=== PATIENT | female | born 1935 | race Caucasian/White ===

== ENCOUNTER 2023-07-03 11:19 | Inpatient (IN) | payer MEDICARE, SELFPAY ==
[2023-07-03] VITALS (12 sets, daily range): BP systolic 114–189; BP diastolic 52–108; BMI 29.4
--- NOTE | 2023-07-03 06:25 | ED.GENMED ---
Addendum entered and electronically signed by Leobardo Hammond DO 07/03/23 08:05:
Correction to the nurses notes, the patient does not appear to have had a heart transplant
Original Note:
History of Present Illness
General
Chief Complaint: Breathing Problem
Source: patient, records and shelter records
Exam Limitations: none
Time Seen by Provider: 07/03/23 06:05
Nursing documentation reviewed up to this point in time: agreed with
Travel History
Have you had any contact with someone who has COVID-19?: No
Do you have any symptoms of coronavirus? Fever > 100 degrees, chills, cough, shortness of breath, sore throat, loss of taste or smell, muscle aches, or headache?: No
History of Present Illness
History of Present Illness:
87-year-old female from local shelter presents with shortness of breath pulse ox in the 80s given nebs x 2 placed on oxygen denies fever denies increasing leg edema, apparently was seen recently with a pleural effusion which was tapped, denies
chest pain,
Past History
Past History
ED Past Medical History: Arrthythmia, CAD, CHF and Hypercholesterolemia
Social History
Tobacco: Former smoker
Drug: None
Living: shelter
Employment: Not employed
Review of Systems
Review of Systems
All Other Systems: Not applicable
Constitutional: Denies fever or fatigue
Respiratory: Reports cough and trouble breathing
Cardiac: Denies chest pain
: Reports no symptoms
Musculoskeletal: Reports no symptoms
Phy Exam
Physical Exam
Physical Exam:
Physical Exam
General: Chronically ill-appearing female dyspneic
Neck: No jaundice
Heart: Irregular
Lungs: Wheezing bilateral
Abdomen: Nontender
Neuro: Grossly nonfocal
Skin: no rash
Psychiatric: cooperative
Extremities: Edema
Scores
Heart Failure Risk
Heart Failure Risk Score: Yes
History of Stroke or TIA: No
History of intubation for respiratory distress: No
Heart rate on ED arrival >/= 110: Yes
SaO2 <90% on arrival on room air: Yes
HR >/=110 during 3min walk test (or too ill to perform test): Yes
ECG has acute ischemic changes: Yes
Urea >/=12mmol/L (BUN 33.6mg/dL): No
Serum CO2>/=35mmol/L: No
Troponin I or T elevated to OH Level (0.4mg/dL): No
NT-proBNP >/=5,000ng/L (5,000pg/ml): Yes
HF Risk Score: 6
Admission Status: VERY HIGH RISK 55.3% Consider admission to hospital
Course
Orders/Labs/Results
Orders:
Orders
07/03/23
Electrocardiogram (*1) Stat
Reason for Study: Chest Pain
Comment: ORDER COMPLETED
07/03/23 06:25
Cardiac Monitoring- Treatment ONCE
O2 Therapy [RESP] Urgent
Titrate/Wean O2 to maintain O2 sat greater than (%): 93
Special Instructions: TO MAINTAIN CONTINUOUS O2 SATS >/= 93%
Pulse Ox/cont/shift [RESP] Urgent
Quantity: 1
Special Instructions: continuous pulse ox
07/03/23 06:27
Complete Blood Count/With Diff Urgent
Comprehensive Metabolic Panel Urgent
NT-proBNP Urgent
Troponin I Urgent
07/03/23 06:55
CR Chest Portable - 1 View Urgent
Comment:
Reason For Exam: SOB
Reason Study Needs to be Portable: Patient Unstable
07/03/23 07:16
Albuterol Nebs [Ventolin Nebules] 2.5 mg INH R NOW STA
07/03/23 07:21
COVID-19 Antigen Urgent
Source: Nasal Swab
Influenza A+B Rapid Molecular Urgent
THOMAS Source: Nasal Swab
Specimen Description:
07/03/23 07:33
Furosemide [Lasix] 80 mg IV NOW STA
07/03/23 07:56
Oseltamivir Phosphate [Tamiflu] 75 mg PO NOW STA
Abnormal Lab Results
07/03/23
06:27
WBC 11.4 H 10^3/uL
(4.8-10.8)
RBC 2.68 L 10^6/uL
(4.20-5.40)
Hgb 8.5 L g/dL
(12.0-16.0)
Hct 25.9 L %
(37.0-47.0)
MCH 31.7 H pg
(27.0-31.0)
MCHC 32.8 L g/dL
(33.0-37.0)
RDW 16.6 H %
(11.5-14.5)
MPV 10.7 H fL
(7.4-10.4)
Abs Immat Gran (auto) 0.1 H 10^3/uL
(0-0.05)
Absolute Neuts (auto) 10.0 H 10^3/uL
(1.4-6.5)
Absolute Lymphs (auto) 0.3 L 10^3/uL
(1.2-3.4)
Neutrophils % 87.5 H %
(42.2-75.2)
Lymphocytes % 2.6 L %
(20.5-51.1)
Creatinine 1.3 H mg/dL
(0.6-1.0)
Glucose 120 H mg/dl
(70-99)
Troponin I 0.051 H* ng/ml
Total Protein 6.2 L g/dl
(6.3-8.2)
Albumin 3.3 L g/dl
(3.5-5.0)
07/03/23 06:27
07/03/23 06:27
Vital Signs
Initial and Last Documented VS:
Initial Vital Signs
Temp Pulse Resp BP Pulse Ox
98.5 F 96 27 175/74 100
07/03/23 05:59 07/03/23 05:59 07/03/23 05:59 07/03/23 05:59 07/03/23 05:59
Last Documented Vital Signs
Temp Pulse Resp BP Pulse Ox
98.5 F 96 27 175/74 97
07/03/23 05:59 07/03/23 05:59 07/03/23 05:59 07/03/23 05:59 07/03/23 06:05
MDM/Problems Addressed
Differential Diagnosis Includes:
Heart failure pneumonia A-fib pleural effusion aspiration
MDM/Problems Addressed:
Shortness of breath cough
Chronic conditions affecting care: CAD, Cardiomyopathy and Arrhythmia
Acute Exacerbation and/or Progression of Chronic Illness: HTN and Cardiomyopathy
*Radiology
Radiology exam reviewed: preliminary read by ED provider
*Pulse Oximetry
Patient hypoxic: yes (80s per EMS on room air)
*EKG
Interpreted by ED Provider?: Yes
Interpretation: abnormal
Comparison EKG: no comparison EKG present
Heart Rate: 108
Rate: tachycardiac
Rhythm: a-fib
Ischemia: non-specific ST changes
*[employer] Spr[employer]er Interpretation
Rate: tachycardiac
Interpretation: abnormal
Heart Rate: 102
Rhythm: a-fib
*Critical Care Note
Total Time (30-74mins, 75-104mins- exclusive of procedures): 20
Patient Management
Discussion with other providers: Hospitalist
Escalation/DeEscalation of care consider admission/obs:
Elderly hypoxia tachypneic tachycardia volume overloaded with influenza requires admission
Update Note
Update Note:
Update 7:50 AM proBNP noted no old in her system she is wheezing with diuresis, influenza screen noted will start Tamiflu
Patient with hypoxia tachypnea tachycardia will require admission message sent to the hospitalist
ED Attending Note
-
Portions of this chart may have been created with voice recognition software.� Occasional wrong word or��sound alike� substitutions may have occurred due to the inherent limitations of voice recognition software.
Discharge Plan
Departure
Referrals:
Emmanuel Chahal MD [Family Provider] -
Interventions
Interventions:
*Risk Screen - Suicide Last Done: 07/03/23 05:59
*General Assessment Last Done: 07/03/23 05:59
*Neglect/Abuse Screening Last Done: 07/03/23 05:59
ED- Fall Risk Assessment Last Done: 07/03/23 05:59
*ED COVID-19 Vaccine History Last Done: 07/03/23 05:59
ED- Cardiac Assessment Last Done: 07/03/23 06:05
ED- Pulmonary Assessment Last Done: 07/03/23 06:05
[2023-07-03 07:18] LABS: ALT (SGPT) 14 U/L (0-35); AST (SGOT) 27 U/L (14-36); Albumin 3.3 g/dl (3.5-5.0); Alkaline Phosphatase 67 U/L (38-126); Blood Urea Nitrogen 14 mg/dl (7-17); Calcium 8.5 mg/dl (8.4-10.2); Carbon Dioxide 26 mmol/L (22-30); Chloride 104 mmol/L (98-107); Glucose 120 mg/dl (70-99); Sodium 137 mmol/L (135-145); Total Bilirubin 0.9 mg/dl (0.2-1.3); Total Protein 6.2 g/dl (6.3-8.2); eGFR 40.05
[2023-07-03] MEDS: VENTOLIN NEBULES 2.5 MG INH (07:22)
[2023-07-03 07:30] LABS: % Basophils 0.6 % (0-2); % Eosinophils 4.6 % (0-6); % Immature Granulocytes 0.5 % (0-0.5); % Lymphocytes 2.6 % (20.5-51.1); % Monocytes 4.2 % (1.7-9.3); % Neutrophils 87.5 % (42.2-75.2); Absolute Basophils 0.1 10^3/uL (0-0.2); Absolute Eosinophils 0.5 10^3/uL (0-0.7); Absolute Immature Granulocytes 0.1 10^3/uL (0-0.05); Absolute Lymphocytes 0.3 10^3/uL (1.2-3.4); Absolute Monocytes 0.5 10^3/uL (0.1-0.6); Hematocrit 25.9 % (37.0-47.0); Hemoglobin 8.5 g/dL (12.0-16.0); Mean Corp Hgb Conc. 32.8 g/dL (33.0-37.0); Mean Corpuscular Hgb 31.7 pg (27.0-31.0); Mean Corpuscular Volume 96.6 fL (81.0-99.0); Mean Platelet Volume 10.7 fL (7.4-10.4); Nucleated Red Blood Cells % 0 %; Platelet Count 300 10^3/uL (130-400); Red Blood Cell Count 2.68 10^6/uL (4.20-5.40); Red Cell Dist. Width 16.6 % (11.5-14.5); White Blood Cell Count 11.4 10^3/uL (4.8-10.8)
[2023-07-03 07:32] LABS: NT-proBNP > 27000 pg/ml; Troponin I 0.051 ng/ml
[2023-07-03] MEDS: LASIX 80 MG IV (07:34)
[2023-07-03 07:52] LABS: COVID-19 Antigen Negative (Negative)
[2023-07-03] MEDS: TAMIFLU 75 MG PO (08:00)
--- NOTE | 2023-07-03 09:14 | HPS.HSE ---
Family Physician
-
Family Physician: Emmanuel Chahal
Chief Complaint
-
Shortness of breath
History of Present Illness
Patient 87-year-old female with past medical history hypertension, hyperlipidemia, A-fib, CAD, CHF, appears to be [facility] resident, presented to the hospital with increased shortness of breath. Patient has been short of breath for several days
associated with cough with white sputum production, no fevers or chills and today she was described as 'she cannot catch her breath' and also she was noted to be tachypneic and hypoxic and shallow breathing. She was sent to the hospital for further
evaluation. She denies any chest pain. Denies any nausea vomiting or diarrhea dysuria urgency or frequency recently. In the ED, her WBC 11.4, troponin 0.051 and up to 0.084, BNP more than 27,000, creatinine 1.3. Chest x-ray with bilateral
interstitial markings. She was referred to hospitalist for further evaluation.
Medical History
Past Medical History
Past Medical History: Reports Other (Hypertension, hyperlipidemia, CAD, pulmonary hypertension atrial fibrillation, CHF, pleural effusion, chronic kidney disease stage III, bradycardia in the past, anemia.)
Past Surgical History: Reports Other (Cardiac surgery in the past and PCI reported by patient.)
Social History
Tobacco: Non-smoker
Alcohol: None
Drug: None
Family History
Family History: Not pertinent
Allergies / Home Medications
Allergies reflects when Allergies were last updated in [facility].
Home Medications with original date entered in [facility]
Allergy/Medication List:
Allergies
Allergy/AdvReac Type Severity Reaction Status Date / Time
No Known Allergies Allergy Unverified 07/03/23 05:58
Home Medications
acetaminophen 325 mg tablet (Tylenol) 650 mg PO Q6H PRN temp>100/mild pain 07/03/23
albuterol sulfate 2.5 mg/3 mL (0.083 %) solution for nebulization 2.5 mg inhalation R Q6HPRN PRN wheezing/sob 07/03/23
aspirin 81 mg tablet,delayed release 81 mg PO DAILY Blood Clot Prevention/Tx 07/03/23
atorvastatin 40 mg tablet 40 mg PO HS High Cholesterol 07/03/23
bisacodyl 10 mg rectal suppository (Dulcolax (bisacodyl)) [address] DAILY PRN if MOM ineffective 07/03/23
carvedilol 12.5 mg tablet 12.5 mg PO Q12H Blood Pressure 07/03/23
clopidogrel 75 mg tablet 75 mg PO DAILY Blood Clot Prevention/Tx 07/03/23
famotidine 20 mg tablet 20 mg PO BID Gastrointestinal Issue 07/03/23
furosemide 20 mg tablet (Lasix) 20 mg PO DAILY Fluid Retention/Swelling 07/03/23
ipratropium 0.5 mg-albuterol 3 mg (2.5 mg base)/3 mL nebulization soln 3 ml inhalation R Q4HPRN PRN sob 07/03/23
losartan 25 mg tablet 25 mg PO DAILY Blood Pressure 07/03/23
magnesium hydroxide 400 mg/5 mL oral suspension (Milk of Magnesia) 30 ml PO DAILY PRN if no BM x 3 days 07/03/23
melatonin 3 mg tablet 3 mg PO HS PRN insomnia 07/03/23
oxycodone 5 mg tablet 5 mg PO Q6H PRN moderate pain 07/03/23
sodium phosphates 19 gram-7 gram/118 mL enema (Fleet Enema) [address] DAILYPRN PRN if dulcolax ineffective 07/03/23
spironolactone 25 mg tablet 25 mg PO DAILY Blood Pressure 07/03/23
trazodone 50 mg tablet 50 mg PO DAILY Sleep 07/03/23
Review of Systems
-
A 12 point ROS was completed and negative except as noted: Yes
Physical Exam
Vital Signs
Vital Signs
Temp Pulse Resp BP Pulse Ox
98.5 F 76 25 159/93 100
07/03/23 05:59 03/13/24 09:00 07/03/23 09:00 07/03/23 09:00 07/03/23 09:00
Physical exam:
General: Acutely ill
HEENT: Normocephalic, Atraumatic and Moist Mucous Membranes
Respiratory: Bilateral crackles; Negative Wheezes or Rhonchi
Cardiac: Regular Rhythm and S1/S2
GI: Soft, Nontender and Nondistended
Musculoskeletal: No Clubbing, No Cyanosis. Presence of bilateral edema
Neuro: Awake, Alert and Oriented
Psych: Calm
Physical Exam
General: Other
Laboratory Results
-
07/03/23 06:27
07/03/23 06:27
Laboratory Results
Total Bilirubin 0.9 mg/dl (0.2-1.3) 07/03/23 06:27
AST 27 U/L (14-36) 07/03/23 06:27
ALT 14 U/L (0-35) 07/03/23 06:27
Alkaline Phosphatase 67 U/L (38-126) 07/03/23 06:27
Troponin I 0.051 ng/ml H* 07/03/23 06:27
Impression/Plan
-
IMPRESSION:
Patient 87-year-old female came to the hospital shortness of breath and found to have influenza A. She also appears to have acute congestive heart failure, unknown type. Patient at increased risk of morbidity and mortality due to presentation so
she will need to be treated in the hospital and monitor accordingly.
Impression:
Acute hypoxic respiratory failure, multifactorial influenza and heart failure and atelectasis
Acute influenza A
Acute CHF, unknown type, likely diastolic
Elevated troponin, suspect elevated troponin due to non-ischemic myocardial injury but cannot rule out acute coronary syndrome
CKD stage III, unknown if worsened from her baseline
Anemia, unknown if worsened from her baseline
Conditions prior to presentation:
CAD
Hypertension
Hyperlipidemia
Anemia
CKD stage III
Obesity
Suspect underlying cognitive deficits
PLAN:
Tamiflu renally dosed 30 mg twice a day
IV diuretics, IV Lasix 40 mg daily
Continue dual antiplatelet therapy, statins, and beta-blockers
Will clarify rest of her home medications before restarting them.
Trend cardiac enzymes
Will check anemia workup including iron, ferritin, TIBC, B12, folate, heme stools, LFTs.
Cardiac monitoring
Monitor strict I/O
Monitor daily weight
Monitor renal function and electrolytes
Will obtain an echocardiogram
Fluid restriction
Salt restriction
Heart failure education
Follow up clinical response
Cardiology consult
Heparin SQ for DVT prophylaxis
CODE STATUS full code
Total time spent on today's encounter was 75 minutes which included time spent in counseling the patient regarding diagnosis and treatment plan as listed above, goals of care, and symptom management. All labs and imaging personally reviewed by me.
Remainder the time spent in detailed review of previous records, lab data, imaging, and other medical provider documentation.
--- NOTE | 2023-07-03 12:05 | CON.CAR ---
Addendum entered and electronically signed by Salvador Quinonez MD 07/03/23 15:44:
I saw and examined the patient.
The INVOICING SPECIALIST's note was reviewed and I agree with the note.
Comment: She seems to have 2 causes of dyspnea: Influenza and heart failure. We are requesting the cath report/echo report/ and cardiology consult ([facility]). Will treat with IV diuresis. Agree with Tamiflu. She does not provide much
history that is reliable.
Original Note:
Medical History
-
Chief Complaint: fatigue and SOB
History of Present Illness:
87 y/o female with hx CAD (it sounds like she had recent stents, but details of this unclear- where/when/otolaryngology teacher- patient does not know), hypertension, and CHF per chart (type unknown) who is here for evaluation of 1.5 weeks of feeling unwell
with fatigue and SOB, as well as cough. She is flu A+. She was hypoxic and is requiring O2 by TX. She has received Tamiflu and is also being diuresed for CHF exacerbation. She is a poor biomedical specialist. I have personally requested records from her
PCP office for more info on patient, including and cardiac information- she tells me she follows with Jesi Jasso. She tells me that she lives at home with her son and daughter in law. She does not think she has gained weight, but doesn't check every
day. Weight in ER is pending. She does admit to orthopnea (chronic), and PND (acute).
Past Medical History
Past Medical History: CAD, CHF and HTN
Social History
Tobacco: Former Smoker (in her 30's)
Living: With Family (per patient she lives with son and daughter in law, but notes suggest prison)
Family History
Family History: Reviewed & Not Pertinent
Allergies / Home Medications
Allergy/AdvReac Type Severity Reaction Status Date / Time
No Known Allergies Allergy Unverified 07/03/23 05:58
Medication Instructions Recorded Confirmed Type
acetaminophen 325 mg tablet 650 mg PO Q6H PRN temp>100/mild 07/03/23 07/03/23 History
(Tylenol) pain
albuterol sulfate 2.5 mg/3 mL 2.5 mg inhalation R Q6HPRN PRN 07/03/23 07/03/23 History
(0.083 %) solution for nebulization wheezing/sob
aspirin 81 mg tablet,delayed 81 mg PO DAILY Blood Clot 07/03/23 07/03/23 History
release Prevention/Tx
atorvastatin 40 mg tablet 40 mg PO HS High Cholesterol 07/03/23 07/03/23 History
bisacodyl 10 mg rectal suppository 10 mg OK DAILY PRN if MOM 07/03/23 07/03/23 History
(Dulcolax (bisacodyl)) ineffective
carvedilol 12.5 mg tablet 12.5 mg PO Q12H Blood Pressure 07/03/23 07/03/23 History
clopidogrel 75 mg tablet 75 mg PO DAILY Blood Clot 07/03/23 07/03/23 History
Prevention/Tx
famotidine 20 mg tablet 20 mg PO BID Gastrointestinal Issue 07/03/23 07/03/23 History
furosemide 20 mg tablet (Lasix) 20 mg PO DAILY Fluid 07/03/23 07/03/23 History
Retention/Swelling
ipratropium 0.5 mg-albuterol 3 mg 3 ml inhalation R Q4HPRN PRN sob 07/03/23 07/03/23 History
(2.5 mg base)/3 mL nebulization
soln
losartan 25 mg tablet 25 mg PO DAILY Blood Pressure 07/03/23 07/03/23 History
magnesium hydroxide 400 mg/5 mL 30 ml PO DAILY PRN if no BM x 3 07/03/23 07/03/23 History
oral suspension (Milk of Magnesia) days
melatonin 3 mg tablet 3 mg PO HS PRN insomnia 07/03/23 07/03/23 History
oxycodone 5 mg tablet 5 mg PO Q6H PRN moderate pain 07/03/23 07/03/23 History
sodium phosphates 19 gram-7 118 ml OK DAILYPRN PRN if dulcolax 07/03/23 07/03/23 History
gram/118 mL enema (Fleet Enema) ineffective
spironolactone 25 mg tablet 25 mg PO DAILY Blood Pressure 07/03/23 07/03/23 History
trazodone 50 mg tablet 50 mg PO DAILY Sleep 07/03/23 07/03/23 History
Review of Systems
-
History Source: Patient
All other systems: Negative unless noted
Constitutional: Fatigue
Respiratory: Cough and Trouble Breathing
Physical Exam
Vital Signs
Temp Pulse Resp BP Pulse Ox
98.5 F 76 23 157/108 82
07/03/23 05:59 07/03/23 11:30 07/03/23 11:30 07/03/23 11:00 07/03/23 11:30
Lab Results
07/03/23 06:27
07/03/23 06:27
Troponin I 0.051 ng/ml H* 07/03/23 06:27
Pqs-[id number] Pept > 26636 pg/ml 07/03/23 06:27
Physical Exam
General: Well Developed, Well Nourished and No Apparent Distress
HEENT: Normocephalic and Anicteric
Respiratory: Wheezes and Other (on O2 by NC)
Cardiac: Regular Rhythm and Peripheral Edema (mild BLE edema)
Skin: Warm and Dry
Neuro: Awake, Alert and Oriented
Psych: Calm
Impression / Plan
-
Influenza A:
-supportive care per primary team
-Tamiflu initiated
CHF, [id number], type unknown
-BNP >27,000- reports orthopnea. Denies weight gain, but doesn't check every day. Thinks her baseline weight is 173 lbs. ER weight is requested and pending.
-on Lasix 20 mg daily and Aldactone 25 mg daily as OP
-agree with IV Lasix, which requires intensive monitoring
-obtain records- I requested from PCP since it was unclear which hospital she was recently in and who otolaryngology teacher is- some records sent- It appears she was in [facility]- had a cath that showed severe multivessel CAD, but not clear what
intervention was ultimately done. Cath was 06/13/23. Indication was NSTEMI and systolic HF per chart, but I do not have an echo or EF. Now will request echo, updated cath, and cardiology notes from [facility]. Otherwise, it looks like she
also recently had pneumonia. Will place records in chart.
-check echo this admit- coughing too much currently- reassess in AM and order if appropriate
Abnormal troponin:
-likely non-ischemic myocardial injury in setting of hypoxia, flu, CHF
-denies CP
-trend to peak
-checking echo this admit
CAD (sounds like recent stenting in her description to me, but details unknown):
-records requested from PCP to start since she is not sure of otolaryngology teacher- also attempted to call family- unable to reach son by telephone- phone kept ringing.
-on DAPT, statin, BB
-denies any CP
HTN:
-BP elevated
-continue medicines and monitor with diuresis
-up-titrate meds if needed
Anemia:
-significant, unknown baseline
-per primary team
Data Reviewed
-
EKG: Tracing Personally Visualized and interpreted (SR with PAC's, baseline artifact)
Radiology: Report Reviewed by me (mild diffuse coarsening of the interstitial markings throughout both lungs, most likely reflecting interstitial fibrosis, however, acute interstitial inflammatory disease is not excluded)
Labs: Labs Reviewed by me
[2023-07-03] MEDS: COREG 12.5 MG PO (12:34)
[2023-07-03] MEDS: ASPIR LOW (ENTERIC COATED) 81 MG PO (12:34)
[2023-07-03] MEDS: PEPCID 20 MG PO ×2 (12:34→21:23)
[2023-07-03] MEDS: PLAVIX 75 MG PO (12:35)
[2023-07-03 12:44] LABS: Troponin I 0.084 ng/ml
[2023-07-03] MEDS: DUONEB 3 ML INH (14:03)
[2023-07-03] MEDS: TYLENOL 650 MG PO (16:12)
[2023-07-03] MEDS: HEPARIN 5000 UNITS SC (16:16)
[2023-07-03] MEDS: ROBITUSSIN 200 MG PO (16:16)
[2023-07-03 18:38] LABS: Troponin I 0.111 ng/ml
[2023-07-03] MEDS: COREG PO (21:23)
[2023-07-03] MEDS: LIPITOR 40 MG PO (21:23)
[2023-07-03] MEDS: TAMIFLU 30 MG PO (21:27)
[2023-07-04] VITALS (8 sets, daily range): BP systolic 146–175; BP diastolic 56–76; BMI 27.7
[2023-07-04] MEDS: HEPARIN 5000 UNITS SC ×3 (00:38→16:09)
[2023-07-04] MEDS: ROBITUSSIN 200 MG PO ×2 (00:39→21:23)
[2023-07-04] MEDS: ASPIR LOW (ENTERIC COATED) 81 MG PO (08:15)
[2023-07-04] MEDS: COREG 12.5 MG PO ×2 (08:15→21:18)
[2023-07-04] MEDS: PLAVIX 75 MG PO (08:16)
[2023-07-04] MEDS: TAMIFLU 30 MG PO ×2 (08:16→21:19)
[2023-07-04] MEDS: LASIX 40 MG IV (08:16)
[2023-07-04] MEDS: PEPCID 20 MG PO ×2 (08:16→21:19)
[2023-07-04] MEDS: DESENEX/MITRAZOL/ZEASORB 1 APPLIC TOPICAL ×2 (08:17→21:19)
--- NOTE | 2023-07-04 08:55 | W.PN.HOSP.TC ---
Today's Communication/Plan
-
IV Lasix, Tamiflu, prednisone.
Assessment / Plan
Assessment / Plan
Physical exam:
General: Acutely ill
HEENT: Normocephalic, Atraumatic and Moist Mucous Membranes
Respiratory: Bilateral crackles; Negative Wheezes or Rhonchi
Cardiac: Regular Rhythm and S1/S2
GI: Soft, Nontender and Nondistended
Musculoskeletal: No Clubbing, No Cyanosis.� Presence of bilateral edema
Neuro: Awake, Alert and Oriented
Psych: Calm
A/P:
Impression:
Acute hypoxic respiratory failure, multifactorial influenza and heart failure
Acute influenza A
Acute CHF, unknown type, likely diastolic
Elevated troponin, suspect elevated troponin due to non-ischemic myocardial injury from heart failure
CKD stage III, unknown baseline
Anemia, unknown baseline
Conditions prior to presentation:
CAD s/p CABG
Hypertension
Hyperlipidemia
Anemia
CKD stage III
Obesity
Underlying cognitive deficits, confirmed with son but not formally diagnosed with dementia
PLAN:
Tamiflu renally dosed 30 mg twice a day
IV diuretics, IV Lasix 40 mg daily
Added one dose of oral prednisone to help with her influenza/reactive airway disease. Avoid prolonged use. Family denies any history of COPD or asthma.
Add some Tessalon pearls.
Discussed with son over the phone today and he tells me she just had open heart surgery 2 weeks ago at [facility] and has been in rehab since.
Hemoglobin and creatinine stable if anything better
Continue dual antiplatelet therapy, statins, and beta-blockers
Hold losartan and spironolactone due to renal failure.
Started on Imdur and considering hydralazine
Trended cardiac enzymes
Checked anemia workup and reviewed.
Cardiac monitoring
Monitor strict I/O
Monitor daily weight
Monitor renal function and electrolytes
Defer echocardiogram to cardiology if needed, but it appears that she had a recent one as outpatient.
Fluid restriction
Salt restriction
Heart failure education
Follow up clinical response
Cardiology consult appreciated
PT OT eval
Heparin SQ for DVT prophylaxis
CODE STATUS full code, confirmed with son
Total time spent on today's encounter was 52 minutes which included time spent in counseling the patient/family regarding diagnosis and treatment plan as listed above, goals of care, and symptom management. Case was discussed with nursing staff,
specialists, and care coordinators/case management. All labs and imaging personally reviewed by me. Remainder the time spent in detailed review of previous records, lab data, imaging, and other medical provider documentation.
Anticipated Discharge: > 48 hours
Subjective/Interval History
-
Date of Service: July 04, 2023
Patient still having some cough that is bothering her and she still has some shortness of breath. Afebrile
Objective Data
-
Labs:
Laboratory Results
07/04/23
08:41
WBC Pending
Hgb Pending
Hct Pending
Plt Count Pending
Sodium Pending
Potassium Pending
Chloride Pending
Carbon Dioxide Pending
BUN Pending
Creatinine Pending
Glucose Pending
Calcium Pending
Total Bilirubin Pending
AST Pending
ALT Pending
Alkaline Phosphatase Pending
Vital Signs:
Vital Signs
Temp Pulse Resp BP Pulse Ox
99.1 F 62 22 159/66 100
07/04/23 03:15 07/04/23 03:15 07/04/23 03:15 07/04/23 08:16 07/04/23 03:15
I&O
07/03/23 07/04/23 07/05/23
06:59 06:59 06:59
Output Total 1100 / 1100
Balance -1100 / -1100
[2023-07-04 09:08] LABS: % Eosinophils 9.3 % (0-6); % Immature Granulocytes 0.3 % (0-0.5); % Lymphocytes 18.6 % (20.5-51.1); % Monocytes 16.3 % (1.7-9.3); % Neutrophils 53.5 % (42.2-75.2); Absolute Basophils 0.1 10^3/uL (0-0.2); Absolute Eosinophils 0.3 10^3/uL (0-0.7); Absolute Lymphocytes 0.6 10^3/uL (1.2-3.4); Absolute Monocytes 0.6 10^3/uL (0.1-0.6); Absolute Neutrophils 1.8 10^3/uL (1.4-6.5); Hematocrit 27.5 % (37.0-47.0); Mean Corp Hgb Conc. 32.7 g/dL (33.0-37.0); Mean Corpuscular Hgb 31.3 pg (27.0-31.0); Mean Corpuscular Volume 95.5 fL (81.0-99.0); Mean Platelet Volume 10.6 fL (7.4-10.4); Nucleated Red Blood Cells % 0 %; Platelet Count 244 10^3/uL (130-400); Red Blood Cell Count 2.88 10^6/uL (4.20-5.40); Red Cell Dist. Width 16.2 % (11.5-14.5); White Blood Cell Count 3.4 10^3/uL (4.8-10.8)
--- NOTE | 2023-07-04 09:19 | W.PN.CD ---
Today's Communication / Plan
-
-Continue Tamiflu and supportive care as per primary team.
-Continue Lasix 40 mg IV daily.
-Will hold off on ordering an echo for now, as she likely recently underwent one at [facility].
-Holding losartan and spironolactone due to renal insufficiency.
-Will add Imdur 30 mg daily for now; will consider subsequently adding hydralazine (25 mg TID).
Impression / Plan
-
Influenza A:
-Continue Tamiflu and supportive care as per primary team.
CHF, [id number], type unknown
-BNP >27,000- reports orthopnea. Denies weight gain, but doesn't check every day. Thinks her baseline weight is 173 lbs. ER weight is requested and pending.
-on Lasix 20 mg daily and Aldactone 25 mg daily as OP
-Continue Lasix 40 mg IV daily.
-Obtain records- requested from PCP since it was unclear which hospital she was recently in and who [employer] Consultant is- some records sent- It appears she was in [facility]- had a cath that showed severe multivessel CAD, but not clear what
intervention was ultimately done. Cath was 06/13/23. Indication was NSTEMI and systolic HF per chart, but no echo results or EF listed. Requested echo, updated cath, and Cardiology notes from [facility]. Otherwise, it looks like she also
recently had pneumonia. Will place records in chart.
-Will hold off on ordering an echo for now, as she likely recently underwent one at [facility].
-Holding losartan and spironolactone due to renal insufficiency.
Abnormal troponin:
-likely acute non-ischemic myocardial injury in setting of hypoxia, flu, CHF
-denies CP
-trend to peak
CAD (sounds like recent stenting in her description, but details unknown):
-Records requested from PCP to start since she is not sure of currency counter- also attempted to call family- unable to reach son by telephone- phone kept ringing.
-Continue DAPT, statin, BB.
-denies any CP
HTN:
-BP mildly elevated.
-Will add Imdur 30 mg daily for now; will consider subsequently adding hydralazine (25 mg TID).
Anemia:
-significant, unknown baseline
-Management as per primary team.
Physical Exam
Vital Signs/Labs
Vital Signs
Temp Pulse Resp BP Pulse Ox
99.1 F 62 22 159/66 100
07/04/23 03:15 07/04/23 03:15 07/04/23 03:15 07/04/23 08:16 07/04/23 03:15
07/03/23 07/04/23 07/05/23
06:59 06:59 06:59
Actual Weight 73.198 kg
07/04/23 08:41
07/03/23
06:27
Idk-F-Aqrdcoqsfha Pept > [id number]
LAB Results
07/03/23 07/03/23 07/03/23
06:27 12:10 18:04
Troponin I 0.051 H* 0.084 H* D 0.111 H* D
07/03/23
23:48
Troponin I Cancelled
Physical Exam
Constitutional: No acute distress and Comfortable
EENT: Anicteric
Cardiovascular: Rhythm & rate is regular, Systolic murmur absent, Pedal edema present (1+) and S1S2 is normal
Respiratory: Respiratory effort normal, Wheeze Present and Other (Coarse bilateral breath sounds, inspiratory/expiratory rub present)
GI: Soft
Neuro/Psych: AO x 3
Other: Skin (Warm, dry, intact)
Data Reviewed
-
Date of Service: July 04, 2023
EKG: Tracing Personally Visualized and interpreted (Telemetry: Sinus rhythm)
Labs: Labs Reviewed by me
Old Records: Requested
[2023-07-04 09:43] LABS: ALT (SGPT) 17 U/L (0-35); AST (SGOT) 33 U/L (14-36); Albumin 3.3 g/dl (3.5-5.0); Alkaline Phosphatase 64 U/L (38-126); Blood Urea Nitrogen 20 mg/dl (7-17); Calcium 8.7 mg/dl (8.4-10.2); Carbon Dioxide 30 mmol/L (22-30); Chloride 97 mmol/L (98-107); Direct Bilirubin 0.2 mg/dl (0.0-0.4); Estimated Creatinine Clearance 33 ml/min; Glucose 96 mg/dl (70-99); Iron 46 ug/dl (37-170); Potassium 4.3 mmol/L (3.5-5.1); Sodium 136 mmol/L (135-145); Total Bilirubin 0.6 mg/dl (0.2-1.3); Total Protein 6.2 g/dl (6.3-8.2); eGFR 44.08
[2023-07-04 09:52] LABS: Percent Saturation 17 % (20-50); Total Iron Binding Capacity 270 ug/dl (265-497)
[2023-07-04 10:56] LABS: Troponin I 0.084 ng/ml
[2023-07-04] MEDS: TESSALON PERLES 100 MG PO ×2 (11:00→16:15)
[2023-07-04] MEDS: DELTASONE 40 MG PO (11:00)
[2023-07-04] MEDS: IMDUR (EXTENDED RELEASE) 30 MG PO (11:00)
[2023-07-04 12:04] LABS: Folate 10.9 ng/ml (2.76-20); Vitamin B12 623 pg/ml (239-931)
[2023-07-04] MEDS: DUONEB 3 ML INH (15:13)
[2023-07-04] MEDS: LIPITOR 40 MG PO (21:18)
[2023-07-04] MEDS: MELATONIN 3 MG PO (21:23)
[2023-07-05] VITALS (8 sets, daily range): BP systolic 147–175; BP diastolic 58–84; PULSE 57; O2SAT 98; BMI 28.0
[2023-07-05] MEDS: HEPARIN 5000 UNITS SC ×3 (00:50→15:15)
[2023-07-05 08:14] LABS: Hematocrit 26.5 % (37.0-47.0); Hemoglobin 8.4 g/dL (12.0-16.0); Mean Corp Hgb Conc. 31.7 g/dL (33.0-37.0); Mean Corpuscular Hgb 30.9 pg (27.0-31.0); Mean Corpuscular Volume 97.4 fL (81.0-99.0); Platelet Count 257 10^3/uL (130-400); Red Blood Cell Count 2.72 10^6/uL (4.20-5.40); Red Cell Dist. Width 15.8 % (11.5-14.5); White Blood Cell Count 2.8 10^3/uL (4.8-10.8)
--- NOTE | 2023-07-05 08:19 | W.PN.HOSP.TC ---
Today's Communication/Plan
-
iv Lasix. Pulmonary consult.
Assessment / Plan
Assessment / Plan
Physical exam:
General: Acutely ill
HEENT: Normocephalic, Atraumatic and Moist Mucous Membranes
Respiratory: Bilateral crackles and Wheezes and some Rhonchi
Cardiac: Regular Rhythm and S1/S2
GI: Soft, Nontender and Nondistended
Musculoskeletal: No Clubbing, No Cyanosis.� Presence of bilateral edema
Neuro: Awake, Alert and Oriented
Psych: Calm
A/P:
Impression:
Acute hypoxic respiratory failure, multifactorial influenza and heart failure
Acute influenza A
Acute CHF, unknown type, likely diastolic
Elevated troponin, suspect elevated troponin due to non-ischemic myocardial injury from heart failure
CKD stage III, unknown baseline
Anemia, unknown baseline
Conditions prior to presentation:
CAD s/p CABG
Hypertension
Hyperlipidemia
Anemia
CKD stage III
Obesity
Underlying cognitive deficits, confirmed with son but not formally diagnosed with dementia
PLAN:
Tamiflu renally dosed 30 mg twice a day
IV diuretics, IV Lasix 40 mg daily
Added one dose of oral prednisone yesterday to help with her influenza/reactive airway disease. Avoid prolonged use. Family denies any history of COPD or asthma.
increase nitrates and added hydralazine
Pulm consult today ([place] texted pulmonary today)
Added some Tessalon pearls.
Discussed with son over the phone yesterday and he tells me she just had open heart surgery 2 weeks ago at [facility] and has been in rehab since.
Continue dual antiplatelet therapy, statins, and beta-blockers
Hold losartan and spironolactone due to renal failure.
Trended cardiac enzymes
Checked anemia workup and reviewed.
Cardiac monitoring
Monitor strict I/O
Monitor daily weight
Monitor renal function and electrolytes
Defer echocardiogram to cardiology if needed, but it appears that she had a recent one as outpatient.
Fluid restriction
Salt restriction
Heart failure education
Follow up clinical response
Cardiology consult appreciated
PT OT eval
Heparin SQ for DVT prophylaxis
CODE STATUS full code, confirmed with son
Total time spent on today's encounter was 52 minutes which included time spent in counseling the patient/family regarding diagnosis and treatment plan as listed above, goals of care, and symptom management. Case was discussed with nursing staff,
specialists, and care coordinators/case management. All labs and imaging personally reviewed by me. Remainder the time spent in detailed review of previous records, lab data, imaging, and other medical provider documentation.
Anticipated Discharge: > 48 hours
Subjective/Interval History
-
Date of Service: July 05, 2023
Patient feels she is about the same, continues to have some cough and also having some wheezes. Afebrile
Objective Data
-
Labs:
Laboratory Results
07/05/23
07:51
WBC Pending
Hgb Pending
Hct Pending
Plt Count Pending
Sodium Pending
Potassium Pending
Chloride Pending
Carbon Dioxide Pending
BUN Pending
Creatinine Pending
Glucose Pending
Calcium Pending
Vital Signs:
Vital Signs
Temp Pulse Resp BP Pulse Ox
97.3 F 58 17 162/79 98
07/05/23 07:00 07/05/23 07:00 07/05/23 07:00 07/05/23 07:00 07/05/23 07:00
I&O
07/04/23 07/05/23 07/06/23
06:59 06:59 06:59
Intake Total 360 / 360
Output Total 1100 / 1100 900 / 900
Balance -1100 / -1100 -540 / -540
Review of Systems
-
All other systems: Reviewed and negative
[2023-07-05 08:34] LABS: Blood Urea Nitrogen 26 mg/dl (7-17); Calcium 8.6 mg/dl (8.4-10.2); Carbon Dioxide 33 mmol/L (22-30); Chloride 97 mmol/L (98-107); Estimated Creatinine Clearance 36 ml/min; Glucose 126 mg/dl (70-99); Potassium 4.1 mmol/L (3.5-5.1); Sodium 134 mmol/L (135-145); eGFR 48.94
[2023-07-05] MEDS: PEPCID 20 MG PO ×2 (08:41→19:48)
[2023-07-05] MEDS: PLAVIX 75 MG PO (08:42)
[2023-07-05] MEDS: IMDUR (EXTENDED RELEASE) 30 MG PO ×2 (08:42→10:03)
[2023-07-05] MEDS: TAMIFLU 30 MG PO ×2 (08:42→19:47)
[2023-07-05] MEDS: COREG 12.5 MG PO (08:42)
[2023-07-05] MEDS: ASPIR LOW (ENTERIC COATED) 81 MG PO (08:42)
[2023-07-05] MEDS: LASIX 40 MG IV (08:43)
[2023-07-05] MEDS: DESENEX/MITRAZOL/ZEASORB 1 APPLIC TOPICAL ×2 (08:43→19:48)
[2023-07-05] MEDS: APRESOLINE 25 MG PO ×3 (10:02→22:43)
--- NOTE | 2023-07-05 10:52 | W.PN.CD ---
Today's Communication / Plan
-
-Continue Lasix 40 mg IV daily.
-Holding off on ordering an echo for now, as she likely recently underwent one at [facility]; awaiting more records.
-Losartan and spironolactone discontinued due to renal insufficiency.
-Will increase Imdur to 60 mg daily.
-Will add hydralazine 25 mg TID.
Impression / Plan
-
Influenza A:
-Continue Tamiflu and supportive care as per primary team.
-Still with significant cough and wheeze.
CHF, [id number], type unknown
-BNP >27,000- reports orthopnea. Denies weight gain, but doesn't check every day. Thinks her baseline weight is 173 lbs. ER weight is requested and pending.
-on Lasix 20 mg daily and Aldactone 25 mg daily as OP
-Continue Lasix 40 mg IV daily.
-Obtain records- requested from PCP since it was unclear which hospital she was recently in and who Director Money is- some records sent- It appears she was in [facility]- had a cath that showed severe multivessel CAD, but not clear what
intervention was ultimately done. Cath was 06/13/23. Indication was NSTEMI and systolic HF per chart, but no echo results or EF listed. Requested echo, updated cath, and Cardiology notes from [facility]. Otherwise, it looks like she also
recently had pneumonia. Will place records in chart.
-Holding off on ordering an echo for now, as she likely recently underwent one at [facility]; awaiting more records.
-Losartan and spironolactone discontinued due to renal insufficiency.
-Will increase Imdur to 60 mg daily.
-Will add hydralazine 25 mg TID.
Abnormal troponin:
-likely acute non-ischemic myocardial injury in setting of hypoxia, flu, CHF
-denies CP
CAD (sounds like recent stenting in her description, but details unknown):
-Records requested from PCP to start since she is not sure of web analytics developer- also attempted to call family- unable to reach son by telephone- phone kept ringing.
-Continue DAPT, statin, BB.
-denies any CP
HTN:
-Remains suboptimally controlled.
-Will increase Imdur to 60 mg daily.
-Will add hydralazine 25 mg TID.
Anemia:
-significant, unknown baseline
-Management as per primary team.
Physical Exam
Vital Signs/Labs
Vital Signs
Temp Pulse Resp BP Pulse Ox
97.3 F 58 17 162/79 93
07/05/23 07:00 07/05/23 07:00 07/05/23 07:00 07/05/23 08:43 07/05/23 10:19
07/04/23 07/05/23 07/06/23
06:59 06:59 06:59
Actual Weight 73.198 kg 74.049 kg
07/05/23 07:51
07/05/23 07:51
07/03/23
06:27
Oeq-N-Eujzqhepirj Pept > 17972
LAB Results
07/03/23 07/03/23 07/03/23
06:27 12:10 18:04
Troponin I 0.051 H* 0.084 H* D 0.111 H* D
07/03/23 07/04/23
23:48 10:07
Troponin I Cancelled 0.084 H*
Physical Exam
Constitutional: No acute distress and Comfortable
EENT: Anicteric
Cardiovascular: Rhythm & rate is regular, Pedal edema is absent, Systolic murmur absent and S1S2 is normal
Respiratory: Respiratory effort normal, Wheeze Present and Other (Coarse bilateral breath sounds and inspiratory/expiratory pleural friction rub)
GI: Soft
Other: Skin (Warm, dry, intact)
Data Reviewed
-
Date of Service: July 05, 2023
EKG: Tracing Personally Visualized and interpreted (Telemetry: Sinus rhythm)
Medical Tests (PFT, Pathology etc): Discussed with Patient
Labs: Labs Reviewed by me
--- NOTE | 2023-07-05 11:07 | CON.PUL ---
Consultation
Consultation Request
Date/Time Consultation Requested: 07/04/2014937
Date/Time Consultation Performed: 07/05/2023 - 1054
Requesting Provider: Dr. Arnold
Performing Provider: Dr. Wetzel
Reason for Consultation: SOB
Medical History
-
Chief Complaint: SOB
History of Present Illness:
87-year-old female with a past medical history of hypertension, A-fib, hyperlipidemia, chronic HFpEF, CKD and anemia who presents from [facility] with shortness of breath. Per the patient, 'she had a heart transplant 3 weeks ago and has had
intermittent shortness of breath since that time.' What she meant to say is that she had a recent heart surgery. She was at a [facility] and her pulse ox was in the 80s and when EMS arrived, and she was placed on a nonrebreather with SpO2 rising
to 100% on 10 L/min. Patient's shortness of breath started about 1 week ago. In the ER she was afebrile to 98.5 �F, pulse rate 91, breathing at 24 breaths/min, BP elevated at 185/100, saturating 100% on nonrebreather at 10 L/min, and she was
coughing and had wheezes on exam. Cough is nonproductive but hacking. Labs showed creatinine 1.3, glucose 120, troponin 0.051, proBNP >27,000, WBC 11.4, Hb low at 8.5, platelets 300, COVID antigen negative, she was found to be flu a positive and
was treated with Tamiflu, also found to be fluid overloaded (CXR had mild diffuse coarsening interstitial markings in both lung chau) and given Lasix 80 mg and given nebulized albuterol 2.5 mg. She has required 2L/min nasal cannula. Pulmonary
now consulted for additional recommendations.
When I saw the patient she was in bed, saying that she just got nebulized treatment and she feels much better. I asked the patient about what recent heart surgery she had and she said that she had a cardiac bypass at [facility]. This is
also not true as there are no wires seen on her CXR from here at [facility] from 07/03/2023. She says she was there at the hospital and then went to rehab and she only got out of rehab a few days ago and then her shortness of breath began
and that is why she came here to the ER at [place]. She denies any recent sick contacts and she lives with her daughter and her daughter's son. She does endorse a cough with difficulty bringing up phlegm. She is a former tobacco smoker but it
is a distant/remote history and she smoked in the for 5-6 months about a quart a pack a day. She is currently on 2 L/min nasal cannula, and she does not use oxygen at home. She currently denies chest pain, headache, abdominal pain, back
pain, fevers or chills.
PMHx: A-fib, CHF, CAD, hyperlipidemia, hypertension, former tobacco use disorder, CKD, impaired vision, anemia
PSHx: Hysterectomy, tonsillectomy
Past Medical History
Past Medical History: Other (Above as per HPI)
Past Surgical History: Other (Above as per HPI)
Social History
Tobacco: Former Smoker (Remote history, smoked for 6 months in the , 04/25PPD, and then quit)
Alcohol: None
Drug: None
Family History
Family History: Reviewed & Not Pertinent
Allergies / Home Medications
Allergies
Allergy/AdvReac Type Severity Reaction Status Date / Time
No Known Allergies Allergy Unverified 07/03/23 05:58
Home Medications
Medication Instructions Recorded Confirmed Last Taken Type
acetaminophen 325 mg tablet 650 mg PO Q6H PRN temp>100/mild 07/03/23 07/03/23 Unknown History
(Tylenol) pain
albuterol sulfate 2.5 mg/3 mL 2.5 mg inhalation R Q6HPRN PRN 07/03/23 07/03/23 Unknown History
(0.083 %) solution for nebulization wheezing/sob
aspirin 81 mg tablet,delayed 81 mg PO DAILY Blood Clot 07/03/23 07/03/23 Unknown History
release Prevention/Tx
atorvastatin 40 mg tablet 40 mg PO HS High Cholesterol 07/03/23 07/03/23 Unknown History
bisacodyl 10 mg rectal suppository 10 mg NH DAILY PRN if MOM 07/03/23 07/03/23 Unknown History
(Dulcolax (bisacodyl)) ineffective
carvedilol 12.5 mg tablet 12.5 mg PO Q12H Blood Pressure 07/03/23 07/03/23 Unknown History
clopidogrel 75 mg tablet 75 mg PO DAILY Blood Clot 07/03/23 07/03/23 Unknown History
Prevention/Tx
famotidine 20 mg tablet 20 mg PO BID Gastrointestinal Issue 07/03/23 07/03/23 Unknown History
furosemide 20 mg tablet (Lasix) 20 mg PO DAILY Fluid 07/03/23 07/03/23 Unknown History
Retention/Swelling
ipratropium 0.5 mg-albuterol 3 mg 3 ml inhalation R Q4HPRN PRN sob 07/03/23 07/03/23 Unknown History
(2.5 mg base)/3 mL nebulization
soln
losartan 25 mg tablet 25 mg PO DAILY Blood Pressure 07/03/23 07/03/23 Unknown History
magnesium hydroxide 400 mg/5 mL 30 ml PO DAILY PRN if no BM x 3 07/03/23 07/03/23 Unknown History
oral suspension (Milk of Magnesia) days
melatonin 3 mg tablet 3 mg PO HS PRN insomnia 07/03/23 07/03/23 Unknown History
oxycodone 5 mg tablet 5 mg PO Q6H PRN moderate pain 07/03/23 07/03/23 Unknown History
sodium phosphates 19 gram-7 118 ml NH DAILYPRN PRN if dulcolax 07/03/23 07/03/23 Unknown History
gram/118 mL enema (Fleet Enema) ineffective
spironolactone 25 mg tablet 25 mg PO DAILY Blood Pressure 07/03/23 07/03/23 Unknown History
trazodone 50 mg tablet 50 mg PO DAILY Sleep 07/03/23 07/03/23 Unknown History
Review of Systems
-
History Source: Patient
All other systems: Negative unless noted (12 point ROS performed and is negative unless mentioned above.)
Vitals / Labs / Diagnostic Testing
Vital Signs
Temp Pulse Resp BP Pulse Ox
98.0 F 57 18 147/84 97
07/05/23 11:18 07/05/23 11:18 07/05/23 11:18 07/05/23 11:18 07/05/23 11:18
Lab Data
07/05/23 07:51
07/05/23 07:51
Microbiology
07/03/23 16:56 Nose MRSA Screen - Final
No Methicillin Resistant Staphylococcus aureus isolated.
07/03/23 07:21 Nasal Swab Influenza Types A & B (SARAH) - Final
Influenza A Positive, NAAT
Diagnostic Testing:
Physical Exam
-
HEENT: Normocephalic and Anicteric
Cardiovascular: S1/S2 and Peripheral Edema (negative)
Respiratory: Wheeze (Occasionally heard in the left upper lobe/right upper lobe), Rales (negative), Rhonchi (negative) and Non-Labored Respirations
GI: Soft, Non Distended and Non Tender
Neurology: Awake and Alert
Skin: Warm and Dry
General: Comfortable and Chills (negative)
Assessment
-
Assessment: 87-year-old female with a past medical history of hypertension, A-fib, hyperlipidemia, chronic HFpEF, CKD and anemia who presents from [facility] with shortness of breath. Per the patient, 'she had a heart transplant 3 weeks ago
and has had intermittent shortness of breath since that time.' What she meant to say that she had a recent heart surgery. [facility] was at [facility] and pulse ox was in the 80s when EMS arrived, and was placed on a nonrebreather with SpO2 rising
to 100% on 10 L/min. Patient's shortness of breath started about 1 week ago. In the ER she was afebrile to 98.5 �F, pulse rate 91, breathing at 24 breaths/min, BP elevated at 185/100, saturating 100% on nonrebreather at 10 L/min, and she was
coughing and had wheezes on exam. Cough is nonproductive but hacking. Labs showed creatinine 1.3, glucose 120, troponin 0.051, proBNP >27,000, WBC 11.4, Hb low at 8.5, platelets 300, COVID antigen negative, she was found to be flu a positive and
was treated with Tamiflu, also found to be fluid overloaded (CXR had mild diffuse coarsening interstitial markings in both lung chau) and given Lasix 80 mg and given nebulized albuterol 2.5 mg. She has required 2L/min nasal cannula. Pulmonary
now consulted for additional recommendations.
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
Impression:
#Acute influenza A pneumonia
#Acute respiratory failure on supplemental oxygen
#Acute decompensated heart failure
#Elevated troponin - likely type II NM with demand ischemia
#CAD
Plan:
- Diurese as BP tolerates; monitor I/O, UOP and trend sCr
- Continue supplemental O2 and maintain SpO2 >90-94%
- obtain outpatient medical records to evaluate last 2D-echo, cath records, cardiology consult/progress notes, etc
- Supportive care with tamilfu, analgesics, anti-tussants, and nebulized bronchodilators
- Considering she has a postinfectious cough, I will start a LABA/ICS with Symbicort that she should also be discharged home on and continue until her cough abates
- No need to continue trending the troponin level as it peaked at 0.111 on 07/03/2023
- low sodium/fluid restricted diet
- Replete electrolytes with K>4, Mg>2
- maintain MAP>65
- Encourage incentive spirometer
- Keep BG>100 and <180mg/dL
- PT/OT, up OOB as tolerated
- DVT ppx
Pulmonary service will continue to follow along. She should follow-up with us in the office for PFTs/6MWT.
A moderate level of medical decision making was used for this encounter.
Data:
CXR 07-03-2023: There is mild diffuse coarsening of the interstitial markings throughout both lungs, most likely reflecting interstitial fibrosis, however, acute interstitial inflammatory disease is not excluded
[2023-07-05] MEDS: DUONEB 3 ML INH (15:33)
[2023-07-05] MEDS: ROBITUSSIN 200 MG PO (19:26)
[2023-07-05] MEDS: SYMBICORT 160/4.5 MCG INHALER 2 PUFF INH (20:27)
[2023-07-05] MEDS: COREG PO (20:59)
[2023-07-05] MEDS: LIPITOR 40 MG PO (22:43)
[2023-07-05] MEDS: TESSALON PERLES 100 MG PO (22:57)
[2023-07-05] MEDS: MELATONIN 3 MG PO (22:57)
[2023-07-06] MEDS: DUONEB 3 ML INH (00:08)
[2023-07-06] MEDS: HEPARIN 5000 UNITS SC ×4 (00:10→23:08)
[2023-07-06] MEDS: ROBITUSSIN 200 MG PO ×2 (00:12→16:23)
[2023-07-06 03:00] VITALS: BP 161/59
[2023-07-06 06:00] VITALS: BMI 27.7
[2023-07-06] MEDS: SYMBICORT 160/4.5 MCG INHALER 2 PUFF INH (07:41)
[2023-07-06 08:13] VITALS: BP 172/70
--- NOTE | 2023-07-06 08:56 | W.PN.HOSP.TC ---
Today's Communication/Plan
-
Continue IV Lasix. Continue Tamiflu.
Assessment / Plan
Assessment / Plan
Physical exam:
General: Acutely ill
HEENT: Normocephalic, Atraumatic and Moist Mucous Membranes
Respiratory: Bilateral crackles and Wheezes and some Rhonchi
Cardiac: Regular Rhythm and S1/S2
GI: Soft, Nontender and Nondistended
Musculoskeletal: No Clubbing, No Cyanosis.� Presence of bilateral edema
Neuro: Awake, Alert and Oriented
Psych: Calm
A/P:
Impression:
Acute hypoxic respiratory failure, multifactorial influenza and heart failure
Acute influenza A
Postinfectious cough, mild reactive airway disease
Acute CHF, unknown type, likely diastolic
Elevated troponin, suspect elevated troponin due to non-ischemic myocardial injury from heart failure
CKD stage III, unknown baseline
Anemia, unknown baseline
Conditions prior to presentation:
CAD s/p CABG
Hypertension
Hyperlipidemia
Anemia
CKD stage III
Obesity
Underlying cognitive deficits, confirmed with son but not formally diagnosed with dementia
PLAN:
Tamiflu renally dosed 30 mg twice a day
IV diuretics, IV Lasix 40 mg daily
increased nitrates and added hydralazine
Cardiology considering restarting ARB's tomorrow
Pulm consult appreciated
Started on LABA/ICS, Symbicort
Continue incentive spirometer
Added some Tessalon pearls.
Discussed with son over the phone yesterday and he tells me she just had open heart surgery 2 weeks ago at [facility] and has been in rehab since.
Continue dual antiplatelet therapy, statins, and beta-blockers
Hold losartan and spironolactone due to renal failure.
Trended cardiac enzymes
Checked anemia workup and reviewed.
Cardiac monitoring
Monitor strict I/O
Monitor daily weight
Monitor renal function and electrolytes
Defer echocardiogram to cardiology if needed, but it appears that she had a recent one as outpatient.
Fluid restriction
Salt restriction
Heart failure education
Follow up clinical response
Cardiology consult appreciated
PT OT eval
Heparin SQ for DVT prophylaxis
CODE STATUS full code
Anticipated Discharge: 24 - 48 hours
Subjective/Interval History
-
Date of Service: July 06, 2023
Patient feels better overall today, less shortness of breath, less cough. Sitting in the chair. Off oxygen, afebrile.
Objective Data
-
Labs:
Laboratory Results
07/06/23
08:27
Sodium Pending
Potassium Pending
Chloride Pending
Carbon Dioxide Pending
BUN Pending
Creatinine Pending
Glucose Pending
Calcium Pending
Vital Signs:
Vital Signs
Temp Pulse Resp BP Pulse Ox
97.8 F 62 18 172/70 99
07/06/23 08:13 07/06/23 08:13 07/06/23 08:13 07/06/23 08:13 07/06/23 08:13
I&O
07/05/23 07/06/23 07/07/23
06:59 06:59 06:59
Intake Total 360 / 360 900 / 900
Output Total 900 / 900 1575 / 1575
Balance -540 / -540 -675 / -675
[2023-07-06] MEDS: ASPIR LOW (ENTERIC COATED) 81 MG PO (08:57)
[2023-07-06] MEDS: APRESOLINE 25 MG PO ×3 (08:59→22:18)
[2023-07-06] MEDS: PEPCID 20 MG PO ×2 (08:59→20:04)
[2023-07-06] MEDS: PLAVIX 75 MG PO (08:59)
[2023-07-06] MEDS: TAMIFLU 30 MG PO ×2 (08:59→20:03)
[2023-07-06] MEDS: DESENEX/MITRAZOL/ZEASORB 1 APPLIC TOPICAL ×2 (09:00→20:05)
[2023-07-06] MEDS: COREG 12.5 MG PO ×2 (09:04→20:04)
[2023-07-06] MEDS: IMDUR (EXTENDED RELEASE) 60 MG PO (09:05)
[2023-07-06] MEDS: LASIX 40 MG IV (09:06)
[2023-07-06 09:11] LABS: Blood Urea Nitrogen 25 mg/dl (7-17); Calcium 8.8 mg/dl (8.4-10.2); Carbon Dioxide 31 mmol/L (22-30); Chloride 98 mmol/L (98-107); Estimated Creatinine Clearance 40 ml/min; Glucose 85 mg/dl (70-99); Potassium 3.9 mmol/L (3.5-5.1); Sodium 135 mmol/L (135-145); eGFR 54.87
[2023-07-06 11:00] VITALS: BP 135/52
--- NOTE | 2023-07-06 11:06 | PTCARENOTE ---
Patient pulse ox on room air 94 %, continuous pulse ox discontinued by hospitalist.
--- NOTE | 2023-07-06 11:10 | W.PN.CD ---
Today's Communication / Plan
-
Continue Lasix 40 mg IV daily
Will consider starting valsartan tomorrow if kidney function stable/improving
Continue Imdur and hydralazine
Impression / Plan
-
Influenza A:
-Continue Tamiflu and supportive care as per primary team.
-Still with significant cough and wheeze.
CHF, [id number], type unknown
-BNP >27,000- reports orthopnea. Denies weight gain, but doesn't check every day. Thinks her baseline weight is 173 lbs. ER weight is requested and pending.
-on Lasix 20 mg daily and Aldactone 25 mg daily as OP
-Continue Lasix 40 mg IV daily.
-Obtain records- requested from PCP since it was unclear which hospital she was recently in and who Foundation Relations Director is- some records sent- It appears she was in [facility]- had a cath that showed severe multivessel CAD, but not clear what
intervention was ultimately done. Cath was 06/13/23. Indication was NSTEMI and systolic HF per chart, but no echo results or EF listed. Requested echo, updated cath, and Cardiology notes from [facility]. Otherwise, it looks like she also
recently had pneumonia. Will place records in chart.
-Holding off on ordering an echo for now, as she likely recently underwent one at [facility]; awaiting more records.
-Losartan and spironolactone discontinued due to renal insufficiency.
-Will increase Imdur to 60 mg daily.
-Will add hydralazine 25 mg TID.
- if BP elevated and Cr stable will add valsartan
Abnormal troponin:
-likely acute non-ischemic myocardial injury in setting of hypoxia, flu, CHF
-denies CP
CAD (sounds like recent stenting in her description, but details unknown):
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
-Continue DAPT, statin, BB.
-denies any CP
HTN:
-Remains suboptimally controlled.
-Will increase Imdur to 60 mg daily.
-Will add hydralazine 25 mg TID.
Anemia and leukopenia:
-significant, unknown baseline
-Management as per primary team.
Physical Exam
Vital Signs/Labs
Vital Signs
Temp Pulse Resp BP Pulse Ox
97.8 F 62 18 172/70 99
07/06/23 08:13 07/06/23 08:13 07/06/23 08:13 07/06/23 08:13 07/06/23 08:13
07/05/23 07/06/23 07/07/23
06:59 06:59 06:59
Actual Weight 163 lb 4 oz 161 lb 7 oz
07/05/23 07:51
07/06/23 08:27
07/03/23
06:27
Azx-J-Lfuberodrgm Pept > 64240
LAB Results
07/03/23 07/03/23 07/03/23
12:10 18:04 23:48
Troponin I 0.084 H* D 0.111 H* D Cancelled
07/04/23
10:07
Troponin I 0.084 H*
Physical Exam
Constitutional: No acute distress and Comfortable
EENT: Anicteric
Cardiovascular: Rhythm & rate is regular and Pedal edema is absent
Respiratory: Respiratory effort normal and Wheeze Present
GI: Soft
Neuro/Psych: Alert and Oriented
Data Reviewed
-
Date of Service: July 06, 2023
EKG: Tracing Personally Visualized and interpreted
Labs: Labs Reviewed by me
[2023-07-06 15:00] VITALS: BP 161/64
--- NOTE | 2023-07-06 15:13 | CM ---
transitional care manager reviewed patient's chart and spoke with patient's son by phone, patient is on isolation and not answering the phone. Per patient's son patient was living in a 1st floor set up of 2 story home, patient was independent with adl's and used
walker with ambulation, patient was recently admitted to the hospital and then sent to [facility], patient's son does not want patient to return to [facility] and wants patient to return to home with family and visiting
darrel.
Pharmacy: [facility]
PCP: Dr. Benitez
Plan; Home with family and visiting nurses.
[2023-07-06] MEDS: TESSALON PERLES 100 MG PO (15:24)
--- NOTE | 2023-07-06 16:11 | W.PN.PUL3 ---
Today's Communication / Plan
-
Continue with current care from the pulmonary perspective
continue antitussives
Continue diuresis
Eventually will need radiographic follow-up in the outpatient setting.
Assessment
-
Assessment: 87-year-old female with a past medical history of hypertension, A-fib, hyperlipidemia, chronic HFpEF, CKD and anemia who presents from [facility] with shortness of breath. Per the patient, 'she had a heart transplant 3 weeks ago
and has had intermittent shortness of breath since that time.' What she meant to say that she had a recent heart surgery. Patient was at snf and pulse ox was in the 80s when EMS arrived, and was placed on a nonrebreather with SpO2 rising
to 100% on 10 L/min. Patient's shortness of breath started about 1 week ago. In the ER she was afebrile to 98.5 �F, pulse rate 91, breathing at 24 breaths/min, BP elevated at 185/100, saturating 100% on nonrebreather at 10 L/min, and she was
coughing and had wheezes on exam. Cough is nonproductive but hacking. Labs showed creatinine 1.3, glucose 120, troponin 0.051, proBNP >27,000, WBC 11.4, Hb low at 8.5, platelets 300, COVID antigen negative, she was found to be flu a positive and
was treated with Tamiflu, also found to be fluid overloaded (CXR had mild diffuse coarsening interstitial markings in both lung chau) and given Lasix 80 mg and given nebulized albuterol 2.5 mg. She has required 2L/min nasal cannula. Pulmonary
now consulted for additional recommendations.
Chronic medical conditions CUSTOMER SOLUTIONS TEAMMATE: A-fib, CHF, CAD, hyperlipidemia, hypertension, former tobacco use disorder, CKD, impaired vision, anemia
Impression:
#Acute influenza A pneumonia
#Acute respiratory failure on supplemental oxygen
#Acute decompensated heart failure
#Elevated troponin - likely type II [place] with demand ischemia
#CAD
Plan:
From the pulmonary perspective is slowly improving.
She states that the cough and congestion is improved
Oxygen has been weaned off
Lung sounds with minimal rhonchi bilaterally.
-Continue supportive care with tamilfu, analgesics, anti-tussants, and nebulized bronchodilators
- Considering she has a postinfectious cough, continue LABA/ICS with Symbicort that she should also be discharged home on and continue until her cough abates.
She also upon discharge will continue with nebulizers as needed at home.
-
From the heart failure component:
Cardiology following, on diuretics.
Continue cardiac management
- low sodium/fluid restricted diet
- Replete electrolytes with K>4, Mg>2
-
- Encourage incentive spirometer
- PT/OT, up OOB as tolerated
- DVT ppx
Pulmonary service will continue to follow along. She should follow-up with us in the office for PFTs/6MWT.
Data:
CXR 07-03-2023: There is mild diffuse coarsening of the interstitial markings throughout both lungs, most likely reflecting interstitial fibrosis, however, acute interstitial inflammatory disease is not excluded
Subjective Data
-
Date of Service:
Date of Service: July 06, 2023
Chief Complaint: Pulmonary Follow Up (Influenza pneumonia-hypoxemic respiratory failure)
Subjective:
Continues to have some coughing
Review of Systems
General: Fever (n)
Cardiopulmonary: Dyspnea (none at rest)
GI: Abdominal Pain (n), Nausea (n) and Vomiting (n)
Neuro: Headache (n)
Objective Data
Data Reviewed
Vital Signs / I&O / Oxygen:
Vital Signs
Temp Pulse Resp BP Pulse Ox
97.4 F 63 20 161/64 96
07/06/23 15:00 07/06/23 15:00 07/06/23 15:00 07/06/23 15:00 07/06/23 15:00
Intake and Output
07/05/23 07/06/23 07/07/23
06:59 06:59 06:59
Intake Total 360 / 360 900 / 900
Output Total 900 / 900 1575 / 1575
Balance -540 / -540 -675 / -675
SaO2 96
Nasal Cannula flow liters per 2
minute
Physical Exam
General: Respiratory Distress (n)
Cardiovascular: S1-S2
Respiratory: Wheeze
GI: Soft and Non Distended
Labs/Micro/Reports
Lab Data
07/05/23 07:51
07/06/23 08:27
Microbiology
07/03/23 16:56 Nose MRSA Screen - Final
No Methicillin Resistant Staphylococcus aureus isolated.
[2023-07-06 19:15] VITALS: BP 175/83
[2023-07-06] MEDS: SYMBICORT 160/4.5 MCG INHALER INH ×2 (20:13→20:16)
[2023-07-06] MEDS: LIPITOR 40 MG PO (22:18)
[2023-07-06] MEDS: MELATONIN 3 MG PO (23:11)
[2023-07-07 02:18] VITALS: BP 150/57
[2023-07-07 06:00] VITALS: BMI 26.8
[2023-07-07 07:22] VITALS: BP 140/66
[2023-07-07 07:23] LABS: % Basophils 0.8 % (0-2); % Eosinophils 8.6 % (0-6); % Immature Granulocytes 0.3 % (0-0.5); % Lymphocytes 26.5 % (20.5-51.1); % Monocytes 12.5 % (1.7-9.3); % Neutrophils 51.3 % (42.2-75.2); Absolute Eosinophils 0.3 10^3/uL (0-0.7); Absolute Monocytes 0.5 10^3/uL (0.1-0.6); Hematocrit 28.4 % (37.0-47.0); Hemoglobin 9.6 g/dL (12.0-16.0); Mean Corp Hgb Conc. 33.8 g/dL (33.0-37.0); Mean Corpuscular Hgb 31.3 pg (27.0-31.0); Mean Corpuscular Volume 92.5 fL (81.0-99.0); Mean Platelet Volume 10.9 fL (7.4-10.4); Nucleated Red Blood Cells % 0 %; Platelet Count 289 10^3/uL (130-400); Red Blood Cell Count 3.07 10^6/uL (4.20-5.40); Red Cell Dist. Width 15.9 % (11.5-14.5); White Blood Cell Count 3.9 10^3/uL (4.8-10.8)
[2023-07-07 07:30] LABS: Blood Urea Nitrogen 23 mg/dl (7-17); Calcium 8.8 mg/dl (8.4-10.2); Carbon Dioxide 32 mmol/L (22-30); Chloride 95 mmol/L (98-107); Estimated Creatinine Clearance 35 ml/min; Glucose 96 mg/dl (70-99); Magnesium 1.9 mg/dl (1.6-2.3); Potassium 3.8 mmol/L (3.5-5.1); Sodium 135 mmol/L (135-145); eGFR 54.87
[2023-07-07] MEDS: LASIX 40 MG IV (08:10)
[2023-07-07] MEDS: TAMIFLU 30 MG PO ×2 (08:11→19:45)
[2023-07-07] MEDS: HEPARIN 5000 UNITS SC ×3 (08:11→23:24)
[2023-07-07] MEDS: PLAVIX 75 MG PO (08:12)
[2023-07-07] MEDS: APRESOLINE 25 MG PO ×2 (08:12→22:23)
[2023-07-07] MEDS: COREG 12.5 MG PO ×2 (08:12→19:45)
[2023-07-07] MEDS: IMDUR (EXTENDED RELEASE) 60 MG PO (08:12)
[2023-07-07] MEDS: SYMBICORT 160/4.5 MCG INHALER 2 PUFF INH ×2 (08:12→19:41)
[2023-07-07] MEDS: PEPCID 20 MG PO ×2 (08:12→19:45)
[2023-07-07] MEDS: ASPIR LOW (ENTERIC COATED) 81 MG PO (08:13)
[2023-07-07] MEDS: DESENEX/MITRAZOL/ZEASORB 1 APPLIC TOPICAL ×2 (08:31→22:19)
--- NOTE | 2023-07-07 09:26 | W.PN.HOSP.TC ---
Today's Communication/Plan
-
IV Lasix. Tamiflu.
Assessment / Plan
Assessment / Plan
Physical exam:
General: Acutely ill
HEENT: Normocephalic, Atraumatic and Moist Mucous Membranes
Respiratory: Bilateral crackles and Wheezes and some Rhonchi
Cardiac: Regular Rhythm and S1/S2
GI: Soft, Nontender and Nondistended
Musculoskeletal: No Clubbing, No Cyanosis.� Presence of bilateral edema
Neuro: Awake, Alert and Oriented
Psych: Calm
A/P:
Impression:
Acute hypoxic respiratory failure, multifactorial influenza and heart failure
Acute influenza A
Postinfectious cough, mild reactive airway disease
Acute CHF, unknown type, likely diastolic
Elevated troponin, suspect elevated troponin due to non-ischemic myocardial injury from heart failure
CKD stage III, unknown baseline
Anemia, unknown baseline
Conditions prior to presentation:
CAD s/p CABG
Hypertension
Hyperlipidemia
Anemia
CKD stage III
Obesity
Underlying cognitive deficits, confirmed with son but not formally diagnosed with dementia
PLAN:
Tamiflu renally dosed 30 mg twice a day
IV diuretics, IV Lasix 40 mg daily
increased nitrates and added hydralazine
Cardiology considering restarting ARB's today
Pulm consult appreciated
Started on LABA/ICS, Symbicort
Continue incentive spirometer
Added some Tessalon pearls.
Discussed with son over the phone yesterday and he tells me she just had open heart surgery 2 weeks ago at [facility] and has been in rehab since.
I talked to son today on 07/06 and updated about her progress and plan of care. He wants to take her home with home health rather than going back to rehab--> I told him we are planning to discharge over the next 24 to 48 hours since he wants to know
d/c plan in advance.
Continue dual antiplatelet therapy, statins, and beta-blockers
Holding losartan and spironolactone due to renal failure but contemplating restarting.
Trended cardiac enzymes
Checked anemia workup and reviewed.
Cardiac monitoring
Monitor strict I/O
Monitor daily weight
Monitor renal function and electrolytes
Defer echocardiogram to cardiology if needed, but it appears that she had a recent one as outpatient.
Fluid restriction
Salt restriction
Heart failure education
Follow up clinical response
Cardiology consult appreciated
PT OT eval
Heparin SQ for DVT prophylaxis
CODE STATUS full code
Anticipated Discharge: 24 - 48 hours
Subjective/Interval History
-
Date of Service: July 07, 2023
Patient feels better overall. Vital signs stable this morning but in the afternoon blood pressure dropped slightly although asymptomatic. Remains afebrile. On room air
Objective Data
-
Labs:
Laboratory Results
07/07/23
06:11
WBC 3.9 L
Hgb 9.6 L
Hct 28.4 L
Plt Count 289
Sodium 135
Potassium 3.8
Chloride 95 L
Carbon Dioxide 32 H
BUN 23 H
Creatinine 1.0
Glucose 96
Calcium 8.8
Vital Signs:
Vital Signs
Temp Pulse Resp BP Pulse Ox
98.0 F 69 16 140/66 96
07/07/23 07:22 07/07/23 08:17 07/07/23 08:17 07/07/23 07:22 07/07/23 08:17
I&O
07/06/23 07/07/23 07/08/23
06:59 06:59 06:59
Intake Total 900 / 900 1080 / 1080
Output Total 1575 / 1575 1700 / 1700
Balance -675 / -675 -620 / -620
[2023-07-07 11:29] VITALS: BP 138/53
--- NOTE | 2023-07-07 11:56 | W.PN.CD ---
Today's Communication / Plan
-
Continue Lasix 40 mg IV
Valsartan 40 mg
Continue Imdur and hydralazine
Impression / Plan
-
Influenza A:
-Continue Tamiflu and supportive care as per primary team.
-Still with significant cough and wheeze.
CHF, [id number], type unknown
-BNP >27,000- reports orthopnea. Denies weight gain, but doesn't check every day. Thinks her baseline weight is 173 lbs. ER weight is requested and pending.
-on Lasix 20 mg daily and Aldactone 25 mg daily as OP
-Continue Lasix 40 mg IV daily.
-Obtain records- requested from PCP since it was unclear which hospital she was recently in and who Forest Worker is- some records sent- It appears she was in [facility]- had a cath that showed severe multivessel CAD, but not clear what
intervention was ultimately done. Cath was 06/13/23. Indication was NSTEMI and systolic HF per chart, but no echo results or EF listed. Requested echo, updated cath, and Cardiology notes from [facility]. Otherwise, it looks like she also
recently had pneumonia. Will place records in chart.
-Holding off on ordering an echo for now, as she likely recently underwent one at [facility]; awaiting more records.
-Losartan and spironolactone discontinued due to renal insufficiency.
-Will increase Imdur to 60 mg daily.
-Will add hydralazine 25 mg TID.
- if BP elevated and Cr stable will add valsartan
Abnormal troponin:
-likely acute non-ischemic myocardial injury in setting of hypoxia, flu, CHF
-denies CP
CAD (sounds like recent stenting in her description, but details unknown):
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
-Continue DAPT, statin, BB.
-denies any CP
NSVT noted on monitor: Continue Coreg
HTN:
-Remains suboptimally controlled.
-Will increase Imdur to 60 mg daily.
-Will add hydralazine 25 mg TID.
-Valsartan 40 mg
Anemia and leukopenia:
-significant, unknown baseline
-Management as per primary team.
Physical Exam
Vital Signs/Labs
Vital Signs
Temp Pulse Resp BP Pulse Ox
98.0 F 66 28 138/53 97
07/07/23 11:29 07/07/23 11:29 07/07/23 11:29 07/07/23 11:29 07/07/23 11:29
07/06/23 07/07/23 07/08/23
06:59 06:59 06:59
Actual Weight 161 lb 7 oz 156 lb 1 oz
07/07/23 06:11
07/07/23 06:11
Magnesium 1.9 mg/dl (1.6-2.3) 07/07/23 06:11
07/03/23
06:27
Eyo-V-Xdgxmaqacpy Pept > 24173
Physical Exam
Constitutional: No acute distress
EENT: Anicteric
Cardiovascular: Rhythm & rate is regular
Respiratory: Respiratory effort normal, Wheeze Present and Crackles Present
GI: Soft
Neuro/Psych: AO x 3
Data Reviewed
-
Date of Service: July 07, 2023
EKG: Tracing Personally Visualized and interpreted
Labs: Labs Reviewed by me
[2023-07-07] MEDS: DIOVAN 40 MG PO (12:29)
--- NOTE | 2023-07-07 13:43 | W.PN.PUL3 ---
Today's Communication / Plan
-
Continue symptomatic management
Discharged on Symbicort until seen in the pulmonary office or symptoms update
Continue diuretics
Complete Tamiflu
Hopefully discharge soon
Sign off
Assessment
-
Assessment: 87-year-old female with a past medical history of hypertension, A-fib, hyperlipidemia, chronic HFpEF, CKD and anemia who presents from [facility] with shortness of breath. Per the patient, 'she had a heart transplant 3 weeks ago
and has had intermittent shortness of breath since that time.' What she meant to say that she had a recent heart surgery. Patient was at retirement and pulse ox was in the 80s when EMS arrived, and was placed on a nonrebreather with SpO2 rising
to 100% on 10 L/min. Patient's shortness of breath started about 1 week ago. In the ER she was afebrile to 98.5 �F, pulse rate 91, breathing at 24 breaths/min, BP elevated at 185/100, saturating 100% on nonrebreather at 10 L/min, and she was
coughing and had wheezes on exam. Cough is nonproductive but hacking. Labs showed creatinine 1.3, glucose 120, troponin 0.051, proBNP >27,000, WBC 11.4, Hb low at 8.5, platelets 300, COVID antigen negative, she was found to be flu a positive and
was treated with Tamiflu, also found to be fluid overloaded (CXR had mild diffuse coarsening interstitial markings in both lung chau) and given Lasix 80 mg and given nebulized albuterol 2.5 mg. She has required 2L/min nasal cannula. Pulmonary
now consulted for additional recommendations.
Chronic medical conditions FURNITURE SALES ASSOCIATE: A-fib, CHF, CAD, hyperlipidemia, hypertension, former tobacco use disorder, CKD, impaired vision, anemia
Impression:
#Acute influenza A pneumonia
#Acute respiratory failure on supplemental oxygen
#Acute decompensated heart failure
#Elevated troponin - likely type II [place] with demand ischemia
#CAD
Plan:
Continues to slowly improve.
She states that the cough and congestion is improved
Oxygen has been weaned off
Lung sounds with minimal rhonchi bilaterally. Moving good air.
-Continue supportive care with tamilfu, analgesics, anti-tussants, and bronchodilators.
-Continue LABA/ICS with Symbicort that she should also be discharged home on and continue until her cough abates.
She also upon discharge will continue with nebulizers as needed at home-she has a nebulizer at home.
No indication for systemic corticosteroids.
-
From the heart failure component:
Cardiology following, on diuretics.
Continue cardiac management
- low sodium/fluid restricted diet
- Replete electrolytes with K>4, Mg>2
-
- Encourage incentive spirometer
- PT/OT, up OOB as tolerated
- DVT ppx
No additional recommendation from the pulmonary perspective. At this point I will sign off. Please call with questions.
Recommend outpatient follow-up with us in the office for PFTs/6MWT.
Data:
CXR 07-03-2023: There is mild diffuse coarsening of the interstitial markings throughout both lungs, most likely reflecting interstitial fibrosis, however, acute interstitial inflammatory disease is not excluded
Subjective Data
-
Date of Service:
Date of Service: July 07, 2023
Chief Complaint: Pulmonary Follow Up (Influenza pneumonia-hypoxemic respiratory failure)
Subjective:
Continues with intermittent coughing.
Reports improvement with current interventions
No significant phlegm production
Review of Systems
General: Fever (n)
Cardiopulmonary: Dyspnea (none at rest) and Cough (improved)
GI: Abdominal Pain (n) and Nausea (n)
Objective Data
Data Reviewed
Vital Signs / I&O / Oxygen:
Vital Signs
Temp Pulse Resp BP Pulse Ox
98.0 F 66 28 138/53 97
07/07/23 11:29 07/07/23 11:29 07/07/23 11:29 07/07/23 11:29 07/07/23 11:29
Intake and Output
07/06/23 07/07/23 07/08/23
06:59 06:59 06:59
Intake Total 900 / 900 1080 / 1080
Output Total 1575 / 1575 1700 / 1700
Balance -675 / -675 -620 / -620
SaO2 97
Nasal Cannula flow liters per 2
minute
Physical Exam
General: Respiratory Distress (n)
Cardiovascular: S1-S2
Respiratory: Wheeze (n)
GI: Soft and Non Distended
Neurology: Awake, Alert, Oriented, AO x 3 and No Motor Deficits
Skin: Warm
Labs/Micro/Reports
Lab Data
07/07/23 06:11
07/07/23 06:11
Microbiology
07/03/23 16:56 Nose MRSA Screen - Final
No Methicillin Resistant Staphylococcus aureus isolated.
--- NOTE | 2023-07-07 15:04 | CM ---
IMM provided. Copy placed on chart.
[2023-07-07] MEDS: APRESOLINE PO (15:48)
--- NOTE | 2023-07-07 15:49 | PTCARENOTE ---
BP at 1545 97/43- hospitalist notified med held and parameters to be added.
[2023-07-07 15:59] VITALS: BP 97/43
[2023-07-07] MEDS: ROBITUSSIN 200 MG PO ×2 (17:25→22:20)
[2023-07-07 18:57] VITALS: BP 147/67
[2023-07-07] MEDS: LIPITOR 40 MG PO (22:18)
[2023-07-07] MEDS: MELATONIN 3 MG PO (22:20)
[2023-07-08] VITALS (7 sets, daily range): BP systolic 102–173; BP diastolic 54–61; PULSE 71; O2SAT 98; BMI 26.4
[2023-07-08] MEDS: SYMBICORT 160/4.5 MCG INHALER 2 PUFF INH ×2 (07:29→19:31)
[2023-07-08] MEDS: HEPARIN 5000 UNITS SC ×2 (08:27→17:45)
[2023-07-08] MEDS: TAMIFLU 30 MG PO (08:27)
[2023-07-08] MEDS: COREG 12.5 MG PO (08:28)
[2023-07-08] MEDS: IMDUR (EXTENDED RELEASE) 60 MG PO (08:28)
[2023-07-08] MEDS: LASIX 40 MG IV (08:29)
[2023-07-08] MEDS: APRESOLINE 25 MG PO ×2 (08:29→17:45)
[2023-07-08] MEDS: DIOVAN 40 MG PO (08:29)
[2023-07-08] MEDS: PEPCID 20 MG PO ×2 (08:29→20:30)
[2023-07-08] MEDS: ASPIR LOW (ENTERIC COATED) 81 MG PO (08:29)
[2023-07-08] MEDS: PLAVIX 75 MG PO (08:29)
[2023-07-08] MEDS: DESENEX/MITRAZOL/ZEASORB 1 APPLIC TOPICAL ×2 (08:36→20:32)
[2023-07-08 08:49] LABS: % Basophils 0.9 % (0-2); % Immature Granulocytes 0.2 % (0-0.5); % Lymphocytes 33.5 % (20.5-51.1); % Monocytes 11.4 % (1.7-9.3); Absolute Eosinophils 0.6 10^3/uL (0-0.7); Absolute Lymphocytes 1.5 10^3/uL (1.2-3.4); Absolute Monocytes 0.5 10^3/uL (0.1-0.6); Absolute Neutrophils 1.8 10^3/uL (1.4-6.5); Hematocrit 30.9 % (37.0-47.0); Hemoglobin 9.9 g/dL (12.0-16.0); Mean Corpuscular Hgb 30.1 pg (27.0-31.0); Mean Corpuscular Volume 93.9 fL (81.0-99.0); Nucleated Red Blood Cells % 0 %; Platelet Count 286 10^3/uL (130-400); Red Blood Cell Count 3.29 10^6/uL (4.20-5.40); Red Cell Dist. Width 15.7 % (11.5-14.5); White Blood Cell Count 4.4 10^3/uL (4.8-10.8)
[2023-07-08 09:04] LABS: Blood Urea Nitrogen 19 mg/dl (7-17); Calcium 9.1 mg/dl (8.4-10.2); Carbon Dioxide 32 mmol/L (22-30); Chloride 96 mmol/L (98-107); Estimated Creatinine Clearance 29 ml/min; Glucose 99 mg/dl (70-99); Potassium 3.7 mmol/L (3.5-5.1); Sodium 137 mmol/L (135-145); eGFR 44.08
--- NOTE | 2023-07-08 09:07 | W.PN.CD ---
Addendum entered and electronically signed by Amari Steward MD 07/08/23 09:40:
87 yo female with PMH CAD, recent [place] (awaiting records), admitted with flu and acute HF, type unknown. Exam with RRR, no murmurs, no edema. Cr 1.2.
She looks euvolemic. Transition to PO lasix. Check echo.
Original Note:
Today's Communication / Plan
-
-transition to PO lasix and follow renal function
-echo today
-I re-requested records from [facility] and attempted to call son to find out more info on her recent cardiac history
Impression / Plan
-
Influenza A:
-Continue Tamiflu and supportive care as per primary team.
-cough and wheeze seem improved
CHF, xdxut-yr-suyerjr, type unknown: improved
-on Lasix 20 mg daily and Aldactone 25 mg daily as OP
-transition from IV to PO lasix
-Obtain records- requested from PCP since it was unclear which hospital she was recently in and who Dye Worker is- some records sent- It appears she was in [facility]- had a cath that showed severe multivessel CAD, but not clear what
intervention was ultimately done. Cath was 06/13/23. Indication was NSTEMI and systolic HF per chart, but no echo results or EF listed. Requested echo, updated cath, and Cardiology notes from [facility]. Otherwise, it looks like she also
recently had pneumonia. Will place records in chart.
-will order echo here as recent history unclear and would be helpful to know her current cardiac function
-Losartan and spironolactone discontinued due to renal insufficiency, but then later low dose valsartan added back- repeat labs in AM
-Imdur increased and hydralazine added this admit
Abnormal troponin:
-suspect acute non-ischemic myocardial injury in setting of hypoxia, flu, CHF
CAD (recent management, details unknown):
-symptomatically stable
-Continue DAPT, statin, BB
-I called son again to find out more info and went to - await call back, also re-requested records from [facility]
NSVT noted on monitor:
-no long runs noted to my assessment
-continue BB
HTN:
-monitor with adjustments in medicine
Anemia and leukopenia:
-significant, unknown baseline
-Management as per primary team.
Physical Exam
Vital Signs/Labs
Vital Signs
Temp Pulse Resp BP Pulse Ox
98.0 F 70 14 144/57 95
07/08/23 03:23 07/08/23 07:32 07/08/23 07:32 07/08/23 03:23 07/08/23 07:32
07/07/23 07/08/23 07/09/23
06:59 06:59 06:59
Actual Weight 70.789 kg 69.763 kg
07/08/23 07:54
07/08/23 07:54
Magnesium 1.9 mg/dl (1.6-2.3) 07/07/23 06:11
07/03/23
06:27
Zft-W-Ukulmkqyvzj Pept > 82899
Physical Exam
Constitutional: No acute distress
EENT: Anicteric
Cardiovascular: Rhythm & rate is regular
Respiratory: Respiratory effort normal and Lungs clear to auscul.
Neuro/Psych: Alert
Other: Skin (warm and dry)
Data Reviewed
-
Date of Service: July 08, 2023
EKG: Other (tele SR, brief runs NSVT occasionally)
Labs: Labs Reviewed by me
--- NOTE | 2023-07-08 10:03 | W.PN.HOSP.TC ---
Addendum entered and electronically signed by Adarsh Ramirez MD 07/10/23 15:08:
Acute on chronic HFrEF
Original Note:
Today's Communication/Plan
-
Transition to oral Lasix
Repeat echocardiogram today ordered by cardiology
Still awaiting records from [facility] and CABG
Continued monitoring with PT progress as at best borderline for home care and may need further rehab
Today's last dose of Tamiflu
Assessment / Plan
Assessment / Plan
Physical exam:
General: Acutely ill
HEENT: Normocephalic, Atraumatic and Moist Mucous Membranes
Respiratory: Bi Rhonchi
Cardiac: Regular Rhythm and S1/S2
GI: Soft, Nontender and Nondistended
Musculoskeletal: No Clubbing, No Cyanosis.� Presence of bilateral edema
Neuro: Awake, Alert and Oriented
Psych: Calm
A/P:
Impression:
Acute hypoxic respiratory failure, multifactorial influenza and heart failure
Acute influenza A/on day 5 of Tamiflu
Postinfectious cough, mild reactive airway disease
Acute CHF, unknown type, likely diastolic
Elevated troponin, suspect elevated troponin due to non-ischemic myocardial injury from heart failure
CKD stage III, unknown baseline
Anemia, unknown baseline
Conditions prior to presentation:
CAD s/p CABG
Hypertension
Hyperlipidemia
Anemia
CKD stage III
Obesity
Underlying cognitive deficits, confirmed with son but not formally diagnosed with dementia
PLAN:
Tamiflu renally dosed 30 mg twice a day/day 5
IV diuretics, IV Lasix 40 mg daily
increased nitrates and added hydralazine
Cardiology considering restarting ARB's today
Pulm consult appreciated
Started on LABA/ICS, Symbicort
Continue incentive spirometer
Added some Tessalon pearls.
Discussed with son over the phone yesterday and he tells me she just had open heart surgery 2 weeks ago at [facility] and has been in rehab since.
I talked to son today on 07/06 and updated about her progress and plan of care. He wants to take her home with home health rather than going back to rehab-->
I told him we are planning to discharge over the next 24 to 48 hours since he wants to know d/c plan in advance. She remains weak however and is borderline criteria for home care at this point
Continue dual antiplatelet therapy, statins, and beta-blockers
Holding losartan and spironolactone due to renal failure but contemplating restarting.
Trended cardiac enzymes
Checked anemia workup and reviewed.
Cardiac monitoring
Monitor strict I/O
Monitor daily weight
Monitor renal function and electrolytes
To have repeat echocardiogram today
Fluid restriction
Salt restriction
Heart failure education
Follow up clinical response
Cardiology consult appreciated
PT OT eval
Heparin SQ for DVT prophylaxis
CODE STATUS full code
Anticipated Discharge: Within 24 hours
Subjective/Interval History
-
Date of Service: July 08, 2023
Some cough still some lethargy and low BPs when was upright yesterday and suspect PT will be recommending subacute care.
Objective Data
-
Labs:
Laboratory Results
07/08/23
07:54
WBC 4.4 L
Hgb 9.9 L
Hct 30.9 L
Plt Count 286
Sodium 137
Potassium 3.7
Chloride 96 L
Carbon Dioxide 32 H
BUN 19 H
Creatinine 1.2 H
Glucose 99
Calcium 9.1
Vital Signs:
Vital Signs
Temp Pulse Resp BP Pulse Ox
97.9 F 70 14 147/61 95
07/08/23 07:14 07/08/23 07:32 07/08/23 07:32 07/08/23 07:14 07/08/23 07:32
I&O
07/07/23 07/08/23 07/09/23
06:59 06:59 06:59
Intake Total 1080 / 1080 1020 / 1020
Output Total 1700 / 1700
Balance -620 / -620 1020 / 1020
Review of Systems
-
History Source: Patient
Constitutional: Reports Fatigue and Sleep Disturbance
EENT: Reports No Symptoms Reported
Respiratory: Reports Trouble Breathing
Abdomen/GI: Reports No Symptoms
Genitourinary: Reports No Symptoms
Musculoskeletal: Reports No Symptoms
Physical Exam
-
General: No Apparent Distress
HEENT: Normocephalic
Respiratory: Rhonchi and Decreased Breath Sounds
Cardiac: Regular Rhythm
GI: Soft and Nontender
Neuro: Awake, Alert and Oriented
Psych: Calm, Confused and Agitated
Data Reviewed
-
Total Time Spent with Patient (in minutes): 45
Labs: Labs Reviewed by me (White count 4.4/hemoglobin 9.9/creatinine 1.2)
[2023-07-08] MEDS: DUONEB 3 ML INH (10:24)
[2023-07-08] MEDS: ROBITUSSIN 200 MG PO ×3 (10:36→20:31)
[2023-07-08] MEDS: TYLENOL 650 MG PO (10:36)
--- NOTE | 2023-07-08 10:39 | PTCARENOTE ---
pt complaining of not feeling well- BP 85/58, was 147/61 prior to am meds. Back in bed gave fluids, now up to 117/78. Patient complained of back pain and feeling short of breath. Pulse OX92 on room air, o2 applied at 2 LPM up to 99% .
Hospitalist notified.
[2023-07-08] MEDS: TESSALON PERLES 100 MG PO ×2 (12:45→20:31)
--- NOTE | 2023-07-08 13:06 | CM ---
CM reviewed chart, PT recommending SNF. CM spoke with patients son, Lisandro, reports he will be taking patient home and requested referral to [facility]. Son reports patient came from a SNF and got the flu and will not be having patient return to a
SNF. CM will continue to follow for discharge planning needs.
Plan; home with family and [facility] pending acceptance.
[2023-07-08] MEDS: LIPITOR 40 MG PO (20:30)
[2023-07-08] MEDS: COREG PO (20:30)
[2023-07-08] MEDS: APRESOLINE PO (22:57)
[2023-07-09] MEDS: HEPARIN 5000 UNITS SC ×3 (00:02→16:08)
[2023-07-09] MEDS: COREG 12.5 MG PO ×2 (00:02→08:44)
[2023-07-09] MEDS: APRESOLINE 25 MG PO ×3 (00:02→16:08)
[2023-07-09] MEDS: DUONEB 3 ML INH (00:11)
[2023-07-09 03:33] VITALS: BP 149/50; BMI 27.1
[2023-07-09 06:00] VITALS: BMI 27.1
[2023-07-09 07:15] VITALS: BP 140/76
[2023-07-09] MEDS: SYMBICORT 160/4.5 MCG INHALER 2 PUFF INH (07:48)
[2023-07-09 08:05] LABS: Blood Urea Nitrogen 22 mg/dl (7-17); Calcium 8.3 mg/dl (8.4-10.2); Carbon Dioxide 33 mmol/L (22-30); Chloride 97 mmol/L (98-107); Estimated Creatinine Clearance 28 ml/min; Glucose 97 mg/dl (70-99); Potassium 3.4 mmol/L (3.5-5.1); Sodium 135 mmol/L (135-145); eGFR 36.64
[2023-07-09] MEDS: LASIX 40 MG PO (08:44)
[2023-07-09] MEDS: IMDUR (EXTENDED RELEASE) 60 MG PO (08:44)
[2023-07-09] MEDS: DIOVAN 40 MG PO (08:44)
[2023-07-09] MEDS: PEPCID 20 MG PO (08:44)
[2023-07-09] MEDS: PLAVIX 75 MG PO (08:44)
[2023-07-09] MEDS: ASPIR LOW (ENTERIC COATED) 81 MG PO (08:44)
[2023-07-09] MEDS: DESENEX/MITRAZOL/ZEASORB 1 APPLIC TOPICAL (08:49)
[2023-07-09] MEDS: TYLENOL 650 MG PO (08:54)
--- NOTE | 2023-07-09 09:09 | PTCARENOTE ---
pt aaox2/3 forgetful about time. states pain in both knees. tylenol given. room air breath sounds course. pt does not want to go back to a rehab. wishes to set up home VN.
--- NOTE | 2023-07-09 10:55 | CARDSERVLU ---
Echocardiogram with [facility] completed after protocol screening completed. Allergies verified.
Patent IV site: __L wrist___
IV site flushed with 0.9% NaCl pre and post administration.
Diluted bolus method utilized to enhance visualization of ventricular ye.
Total volume given: __2.5__ mL
Patient tolerated all procedures well without complications.
--- NOTE | 2023-07-09 10:57 | CM ---
Addendum entered by Roseanne Caldera 07/09/23 17:03:
CM spoke to patients son, will arrive at the hospital this evening after work to bring patient home. Son reports patient was previous with [facility], CM spoke to [facility], able to accept patient, CM faxed clinicals to [phone].
Addendum entered by Roseanne Caldera 07/09/23 15:15:
CM met with patient bedside, discussed plan for discharge today. Patient reports she will call her son to provide transportation home, reports he will not be able to get here until around 7:00 p.m. Patient provided address of home for VN referral,
referral placed in [facility] for [facility] V[facility]. CM informed patient she left a message for patients son earlier and did not hear back, and if son has any questions to contact CM. IMM reviewed, signed, placed in patients chart.
Plan; home with family and [facility]
Original Note:
CM left voicemail for patients son, Lisandro, to obtain patients address for VN referral, along with reviewing IMM. CM will continue to follow for discharge planning needs.
Plan; home with family and [facility], awaiting return call from patients son.
--- NOTE | 2023-07-09 11:07 | W.PN.CD ---
Today's Communication / Plan
-
-Transitioned to Lasix 40 mg daily, which should be home dose.
-Continue current doses of Coreg, Imdur, Hyrdalazine, and Valsartan; further GDMT limited by renal dysfunction (spironolactone discontinued).
-Patient can have echocardiogram performed as outpatient once fully recovered from influenza, as it will not change her current management.
-Outpatient follow-up with primary Plant Protection Supervisor.
Impression / Plan
-
Influenza A:
-Now completed Tamiflu as per primary team.
-Respiratory status improved.
CHF, [id number], type unknown:
-Clinically improved.
-Transitioned to Lasix 40 mg daily, which should be home dose.
-Continue current doses of Coreg, Imdur, Hyrdalazine, and Valsartan; further GDMT limited by renal dysfunction (spironolactone discontinued).
-Obtain records- requested from PCP since it was unclear which hospital she was recently in and who Plant Protection Supervisor is- some records sent- It appears she was in [facility] [address] [facility]- had a cath that showed severe multivessel CAD, but not clear what
intervention was ultimately done. Cath was 06/13/23. Indication was NSTEMI and systolic HF per chart, but no echo results or EF listed. Requested echo, updated cath, and Cardiology notes from [facility]. Otherwise, it looks like she also
recently had pneumonia.
-Patient can have echocardiogram performed as outpatient once fully recovered from influenza, as it will not change her current management.
Abnormal troponin:
-suspect acute non-ischemic myocardial injury in setting of hypoxia, flu, CHF
CAD (recent management, details unknown):
-Denies any anginal symptoms.
-Continue DAPT, statin, BB.
NSVT noted on monitor:
-Stable on current dose of Coreg
HTN:
-Fairly controlled on current medications.
Anemia and leukopenia:
-Management as per primary team.
Physical Exam
Vital Signs/Labs
Vital Signs
Temp Pulse Resp BP Pulse Ox
98.9 F 73 16 144/76 97
07/09/23 07:15 07/09/23 08:44 07/09/23 07:54 07/09/23 08:44 07/09/23 07:54
07/08/23 07/09/23 07/10/23
06:59 06:59 06:59
Actual Weight 69.763 kg 71.469 kg
07/08/23 07:54
07/09/23 06:58
Magnesium 1.9 mg/dl (1.6-2.3) 07/07/23 06:11
07/03/23
06:27
Pgm-[id number] Pept > [id number]
Physical Exam
Constitutional: No acute distress and Comfortable
EENT: Anicteric
Cardiovascular: Rhythm & rate is regular, Pedal edema present (trace), Systolic murmur present (1/6) and S1S2 is normal
Respiratory: Respiratory effort normal, Wheeze Present (Very mild expiratory) and Rhonchi Present (scant)
GI: Soft
Neuro/Psych: AO x 3
Other: Skin (Warm, dry, intact)
Data Reviewed
-
Date of Service: July 09, 2023
EKG: Tracing Personally Visualized and interpreted (Telemetry: Sinus rhythm)
Medical Tests (PFT, Pathology etc): Discussed with Patient
Labs: Labs Reviewed by me
[2023-07-09 11:29] VITALS: BP 115/63
--- NOTE | 2023-07-09 11:47 | W.DCSUMMARY ---
Discharge Summary
Discharge Data
Date of Admission: 07/03/23
Date of Discharge: 07/09/23
-
Pending Results: No
Hospital Course
Patient 87-year-old female with past medical history hypertension, hyperlipidemia, A-fib, CAD, CHF, appears to be half-way resident, presented to the hospital with increased shortness of breath.� Patient has been short of breath for several days
associated with cough with white sputum production, no fevers or chills and today she was described as 'she cannot catch her breath' and also she was noted to be tachypneic and hypoxic and shallow breathing.� She was sent to the hospital for further
evaluation.� She denies any chest pain.� Denies any nausea vomiting or diarrhea dysuria urgency or frequency recently.� In the ED, her WBC 11.4, troponin 0.051 and up to 0.084, BNP more than 27,000, creatinine 1.3.� Chest x-ray with bilateral
interstitial markings.� She was referred to hospitalist for further evaluation.
Subsequently found to have acute influenza A/started on a renal dosed of Tamiflu and complete a 5-day course
Also presented with acute hypoxic respiratory failure felt to be multifactorial in combination with influenza heart failure and atelectasis and cardiology was consulted and concurred with cautious IV hydration IV diuretic management toward
completion of her Tamiflu therapy.
She was continued on dual antiplatelet therapy statins and beta-blockers and anemia workup undertaken/she was also seen by the pulmonary service
Pulmonary opinion was to discharge the patient on Symbicort dosing till seen by the pulmonary service as an outpatient
She was transition to oral Lasix 40 mg daily which will be her home dose she will continue prior dosing of carvedilol Imdur hydralazine and valsartan with further GDMT limited by renal dysfunction and her spironolactone she had been taken prior was
discontinued
She will have an outpatient echocardiogram once fully recovered from her influenza
PT/OT saw the patient and have been recommending subacute nursing facility for further rehab but family was insistent on taking the patient home she is improved to the point that I believe that this can be adequate disposition for her I consulted
case management and they will follow her accordingly as needed I have also called in a prescription for a nebulizer machine along with neb treatments Symbicort
Discharge Plan
-
Patient Disposition: Home with Home Care
Discharge Diagnosis/Procedures: Influenza A
Acute on chronic congestive heart failure
Nonischemic troponin elevation
Diet: Regular
Activity: As tolerated
Driving Restrictions: No driving
Other Services: VN, PT and OT
Activity Restrictions/Additional Instructions:
Please make a follow up with your student teacher at [facility] within two weeks.
Instructions: *PCP/Other Dance Historian Heart Failure Instructions
Referrals:
Jesus Wetzel MD [Active] - in three to four weeks (Obtain 6MWT and PFTs)
Emmanuel Chahal MD [Family Provider] - in less than 1 week
Prescriptions:
New
furosemide 40 mg Tablet
40 mg PO DAILY Qty: 30 0RF
ipratropium-albuterol 0.5 mg-3 mg(2.5 mg base)/3 mL Solution For Nebulization
3 ml inhalation R Q4HPRN PRN (Reason: sob) Qty: 30 0RF
hydralazine 25 mg Tablet
25 mg PO TID Qty: 90 0RF
isosorbide mononitrate 60 mg Tablet Extended Release 24 Hr
60 mg PO DAILY Qty: 30 0RF
benzonatate 100 mg Capsule
100 mg PO TIDPRN PRN (Reason: cough not better w/robitussin) Qty: 14 0RF
budesonide-formoterol [Symbicort] 160-4.5 mcg/actuation Hfa Aerosol Inhaler
2 puff inhalation R BID Qty: 17 0RF
(DME) nebulizer and compressor Device
See Rx Instructions .Route Qty: 1 0RF
Rx Instructions:
As directed
Continued
atorvastatin 40 mg Tablet
40 mg PO HS
acetaminophen [Tylenol] 325 mg Tablet
650 mg PO Q6H MDD 3000 mg PRN (Reason: temp>100/mild pain)
carvedilol 12.5 mg Tablet
12.5 mg PO Q12H
Rx Instructions:
07/03/2023, hold for SBP below 100 and HR below 60.
ipratropium-albuterol 0.5 mg-3 mg(2.5 mg base)/3 mL Solution For Nebulization
3 ml INHALATION R Q4HPRN PRN (Reason: sob)
albuterol sulfate 2.5 mg /3 mL (0.083 %) Solution For Nebulization
2.5 mg INHALATION R Q6HPRN PRN (Reason: wheezing/sob)
trazodone 50 mg Tablet
50 mg PO DAILY
melatonin 3 mg Tablet
3 mg PO HS PRN (Reason: insomnia)
Rx Instructions:
07/03/2023, start date: 06/25/2023; end date: 07/09/2023.
clopidogrel 75 mg Tablet
75 mg PO DAILY
aspirin 81 mg Tablet,Delayed Release (Dr/Ec)
81 mg PO DAILY
famotidine 20 mg Tablet
20 mg PO BID
magnesium hydroxide [Milk of Magnesia] 400 mg/5 mL Suspension
30 ml PO DAILY PRN (Reason: if no BM x 3 days)
bisacodyl [Dulcolax (bisacodyl)] 10 mg Suppository
10 mg IA DAILY PRN (Reason: if MOM ineffective)
losartan 25 mg Tablet
25 mg PO DAILY
Rx Instructions:
07/03/2023, hold for SBP below 100.
Fleet Enema 19-7 gram/118 mL Enema
118 ml IA DAILYPRN PRN (Reason: if dulcolax ineffective)
oxycodone 5 mg Tablet
5 mg PO Q6H PRN (Reason: moderate pain)
Changed
furosemide [Lasix] 20 mg Tablet
40 mg PO DAILY Qty: 0 0RF
Rx Instructions:
07/03/2023, 40 mg x 5 days (07/02/2023 - 07/07/2023).
Discontinued
spironolactone 25 mg Tablet
25 mg PO DAILY
Discharge Orders:
Discharge Patient (As Directed); Ordered 07/09/23
Ordered By: Adarsh Ramirez
--- NOTE | 2023-07-09 14:19 | W.DS.TRANS ---
DC Summary - Sales Agent
-
Discharge Instructions:
Sleep Apnea Risk Low
Discharge Diagnosis/Procedures Influenza A
Acute on chronic congestive heart failure
Nonischemic troponin elevation
Diet Regular
Activity As tolerated
Driving Restrictions No driving
Other Services VN,PT,OT
Instructions: *PCP/Other Licsw Heart Failure Instructions
Stand-Alone Forms:
Changes to Home Medications: Yes
Discharge Medications:
DC Medications w/original date entered in [employer]
acetaminophen 325 mg tablet (Tylenol) 650 mg PO Q6H PRN temp>100/mild pain 07/03/23
albuterol sulfate 2.5 mg/3 mL (0.083 %) solution for nebulization 2.5 mg inhalation R Q6HPRN PRN wheezing/sob 07/03/23
aspirin 81 mg tablet,delayed release 81 mg PO DAILY Blood Clot Prevention/Tx 07/03/23
atorvastatin 40 mg tablet 40 mg PO HS High Cholesterol 07/03/23
bisacodyl 10 mg rectal suppository (Dulcolax (bisacodyl)) 10 mg ID DAILY PRN if MOM ineffective 07/03/23
carvedilol 12.5 mg tablet 12.5 mg PO Q12H Blood Pressure 07/03/23
clopidogrel 75 mg tablet 75 mg PO DAILY Blood Clot Prevention/Tx 07/03/23
famotidine 20 mg tablet 20 mg PO BID Gastrointestinal Issue 07/03/23
ipratropium 0.5 mg-albuterol 3 mg (2.5 mg base)/3 mL nebulization soln 3 ml inhalation R Q4HPRN PRN sob 07/03/23
losartan 25 mg tablet 25 mg PO DAILY Blood Pressure 07/03/23
magnesium hydroxide 400 mg/5 mL oral suspension (Milk of Magnesia) 30 ml PO DAILY PRN if no BM x 3 days 07/03/23
melatonin 3 mg tablet 3 mg PO HS PRN insomnia 07/03/23
oxycodone 5 mg tablet 5 mg PO Q6H PRN moderate pain 07/03/23
sodium phosphates 19 gram-7 gram/118 mL enema (Fleet Enema) 118 ml ID DAILYPRN PRN if dulcolax ineffective 07/03/23
trazodone 50 mg tablet 50 mg PO DAILY Sleep 07/03/23
benzonatate 100 mg capsule 100 mg PO TIDPRN PRN cough not better w/robitussin #14 caps 07/09/23
budesonide-formoterol HFA 160 mcg-4.5 mcg/actuation aerosol inhaler (Symbicort) 2 puff inhalation R BID #17 grams 07/09/23
furosemide 40 mg tablet 40 mg PO DAILY #30 tabs 07/09/23
hydralazine 25 mg tablet 25 mg PO TID #90 tabs 07/09/23
ipratropium 0.5 mg-albuterol 3 mg (2.5 mg base)/3 mL nebulization soln 3 ml inhalation R Q4HPRN PRN sob #30 mL 07/09/23
isosorbide mononitrate 60 mg tablet,extended release 24 hr 60 mg PO DAILY #30 tabs 07/09/23
nebulizer and compressor #1 ea 07/09/23
Home Medication Changes
Pending Results: No
Total time spent discharging patient (in min): 53
[2023-07-09 15:15] VITALS: BP 146/56
--- NOTE | 2023-07-09 15:43 | PN.CDI ---
CDI
- -
CDI:
Physician Documentation Request
Admit Date: 07/03/23 11:19
Dear Doctor James,
Please review the following and provide your response in the progress notes.
Clinical Indicators:
- 07/07 PN 'Acute CHF, unknown type, likely diastolic'
- 07/08 Echo EF 35/40% 'Stage I diastolic dysfunction suggestive of abnormal relaxation'
- 07/08 Cardiology 'CHF, [id number], type unknown'
- per outside records 'NSTEMI and systolic HF per chart, but no echo results or EF listed'
Please provide further specificity regarding the most likely type of CHF you are evaluating, treating or monitoring.
Acute on chronic HFrEF
Acute on chronic HFmrEF
Other
Use of terms such as suspected, likely, concern for, or probable (associated with a specific diagnosis that is being evaluated, monitored, or treated as if it exists) are acceptable and can be coded in the inpatient setting, when documented at the
time of discharge.
Thank you,
Leonard Salmon RN
CDI Specialist
Please use your independent medical judgment in providing your response.
[2023-07-09 15:50] VITALS: BP 146/59; PULSE 87; O2SAT 97
== END 2023-07-09 18:20 | disposition home health service (06) | DRG 193 ==
LOC: 4 WEST ACU 11:19
PROVIDERS: Internal Medicine; Nurse Practitioner; ADMITTING PHYSICIAN Hospitalist; ATTENDING PHYSICIAN Internal Medicine; CONSULT PHYSICIAN Internal Medicine Cardiovascular Disease; CONSULT PHYSICIAN Internal Medicine Critical Care Medicine; EMERGENCY PHYSICIAN Emergency Medicine; FAMILY PHYSICIAN Internal Medicine
DX: J09.X2 Influenza due to identified novel influenza A virus with other respiratory manifestations (principal); I50.23 Acute on chronic systolic (congestive) heart failure; J96.01 Acute respiratory failure with hypoxia; I13.0 Hypertensive heart and chronic kidney disease with heart failure and stage 1 through stage 4 chronic kidney disease, or unspecified chronic kidney disease; I5A Non-ischemic myocardial injury (non-traumatic); J98.11 Atelectasis; I47.20 Ventricular tachycardia, unspecified; Z11.52 Encounter for screening for COVID-19; Z87.891 Personal history of nicotine dependence; I25.10 Atherosclerotic heart disease of native coronary artery without angina pectoris; N18.30 Chronic kidney disease, stage 3 unspecified; D64.9 Anemia, unspecified; E66.9 Obesity, unspecified; Z68.27 Body mass index [BMI] 27.0-27.9, adult; E78.00 Pure hypercholesterolemia, unspecified; I48.91 Unspecified atrial fibrillation
CPT/HCPCS: 71045; 80048; 80053; 82248; 82607; 82728; 82746; 83540; 83550; 83735; 83880; 84484; 85025; 85027; 87070; 87502; 87811; 93005; 93306; 94640; 96374; 97116; 97163; 97166; 97530; 99285; Q9950